=== PATIENT | male | born 1970 | race Caucasian/White ===

== ENCOUNTER → 2016-10-06 | Outpatient (CLI) | payer BC ==
[~2016-10-06] MED LIST: AMIT25TA9 PO; AMLO5TAB2 PO; DOXY100C2 PO; HYDR-34 PO; HYDR-3729 PO; LANS30CA PO; LISI40TA PO; LNS30CCR PO; MORP20SO PO; MTP50T PO; OMEP20TA2 PO; ONDA4TAB8 PO; OXYC-12 PO; OXYC1TAB87 PO; PANT40TA3 PO; SERT25TA PO
[2016-10-06 14:32] LABS: BASOPHILS % (AUTO) 0 % (0-10); EOSINOPHILS % (AUTO) 1 % (0-10); LYMPHOCYTES # (AUTO) 0.8 X 10^3 (1.0-4.0); LYMPHOCYTES % (AUTO) 15 % (12-44); MEAN CORPUSCULAR HEMOGLOBIN 34 PG (25-34); MEAN CORPUSCULAR HGB CONC 35 G/DL (32-36); MEAN CORPUSCULAR VOLUME 100 FL (80-99); MONOCYTES # (AUTO) 0.5 X 10^3 (0.0-1.0); MONOCYTES % (AUTO) 10 % (0-12); NEUTROPHILS # (AUTO) 3.7 X 10^3 (1.8-7.8); NEUTROPHILS % (AUTO) 74 % (42-75); PLATELET COUNT 157 10^3/uL (130-400); RED BLOOD COUNT 4.16 10^6/uL (4.35-5.85); RED CELL DISTRIBUTION WIDTH 12.2 % (10.0-14.5)
--- NOTE | 2016-10-06 14:45 | Diagnostic Imaging Report ---
PROCEDURE: CT abdomen and pelvis without contrast. TECHNIQUE: Multiple contiguous axial images were obtained through the abdomen and pelvis without the use of intravenous contrast. INDICATION: K43.2. Checking on hernia surgery site. FINDINGS: The lung bases appear clear. There is a surgical suture along the proximal stomach. Compared to 05/31/2016, there is also interval resection of a mass from the posterior aspect of the proximal stomach. A small tube along the gastrojejunostomy and another tube through the proximal stomach are seen. There is also a drain that appears to be within the pancreatic duct. The liver demonstrates diffuse hepatic steatosis. The gallbladder has no calcified stones. The adrenal glands and pancreas appear unremarkable. The kidneys demonstrate no hydronephrosis and no stones. The abdominal aorta is normal in caliber. No periaortic significantly enlarged lymph node is seen. There is no bowel obstruction. No free fluid or fluid collection in the abdomen or pelvis is seen. The appendix appears normal. The osseous structures appear grossly unremarkable. There is a small fat-containing supraumbilical ventral hernia with the size of the abdominal wall defect measuring 1 cm in width. Another tiny similar fat-containing hernia with a subcentimeter defect is also suggested in the supraumbilical level. These two small hernias are about 10 cm above the umbilicus. There is a tiny fat-containing umbilical hernia seen as well. IMPRESSION: 1. Tiny fat-containing umbilical and supraumbilical hernias. 2. Hepatic steatosis. 3. Postsurgical changes and drains are seen in the stomach and pancreatic duct as described. Dictated by: Dictated on workstation # [id number]
[2016-10-06 14:54] LABS: ALANINE AMINOTRANSFERASE 191 U/L (0-55); ANION GAP 11 MMOL/L (5-14); ASPARTATE AMINO TRANSFERASE 149 U/L (5-34); BILIRUBIN,TOTAL 0.6 MG/DL (0.1-1.0); BLOOD UREA NITROGEN 10 MG/DL (7-18); BUN/CREATININE RATIO 14; CALCIUM 9.4 MG/DL (8.5-10.1); CARBON DIOXIDE 26 MMOL/L (21-32); CHLORIDE 102 MMOL/L (98-107); CREATININE SERUM 0.73 MG/DL (0.60-1.30); GFR ESTIMATED > 60; GLUCOSE 98 MG/DL (70-105); LIPASE 51 U/L (8-78); POTASSIUM 3.6 MMOL/L (3.6-5.0); SODIUM 139 MMOL/L (135-145); TOTAL PROTEIN 8.1 G/DL (6.4-8.2)
== END ==
LOC: RAD 13:58
PROVIDERS: ATTEND Family Medicine
DX: K43.2 Incisional hernia without obstruction or gangrene (principal); K86.2 Cyst of pancreas; K76.0 Fatty (change of) liver, not elsewhere classified
CPT/HCPCS: 36415; 74176; 80053; 83690; 85025

== ENCOUNTER 2016-11-17 09:17 | Outpatient (CLI) | payer BC ==
[~2016-11-17] VITALS: Ht 177.8 cm; Wt 79.8 kg
[2016-11-17 09:27] VITALS: BP 147/97
[2016-11-17] MEDS ORDERED: LANS30CA PO (09:28)
[2016-11-17 09:54] LABS: BASOPHILS % (AUTO) 0 % (0-10); EOSINOPHILS % (AUTO) 0 % (0-10); LYMPHOCYTES # (AUTO) 0.8 X 10^3 (1.0-4.0); LYMPHOCYTES % (AUTO) 17 % (12-44); MEAN CORPUSCULAR HEMOGLOBIN 34 PG (25-34); MEAN CORPUSCULAR HGB CONC 34 G/DL (32-36); MEAN CORPUSCULAR VOLUME 100 FL (80-99); MEAN PLATELET VOLUME 11.9 FL (7.4-10.4); MONOCYTES # (AUTO) 0.6 X 10^3 (0.0-1.0); MONOCYTES % (AUTO) 11 % (0-12); NEUTROPHILS # (AUTO) 3.5 X 10^3 (1.8-7.8); NEUTROPHILS % (AUTO) 72 % (42-75); PLATELET COUNT 131 10^3/uL (130-400); RED BLOOD COUNT 4.08 10^6/uL (4.35-5.85); RED CELL DISTRIBUTION WIDTH 12.6 % (10.0-14.5); WHITE BLOOD COUNT 4.9 10^3/uL (4.3-11.0)
== END 2016-11-17 09:40 | disposition home or self-care (01) ==
LOC: PREOP 09:17
PROVIDERS: ATTEND Surgery
DX: Z01.812 Encounter for preprocedural laboratory examination (principal); Z11.2 Encounter for screening for other bacterial diseases; K43.9 Ventral hernia without obstruction or gangrene
CPT/HCPCS: 36415; 85025; 87081

== ENCOUNTER 2016-11-20 08:33 | Day surgery (SDC) | payer BC ==
[~2016-11-20] VITALS: Ht 177.8 cm; Wt 77.3 kg
[2016-11-20] MEDS ORDERED: CELECOXIB 100 MG (CeleBREX) CAP PO ONE ×3 (09:00→12:45)
[2016-11-20] MEDS ORDERED: ceFAZolin 1 GM/NS 50 ML IVPB IV ONE ×2 (09:00)
[2016-11-20] MEDS ORDERED: oxyCODONE ER 10 MG (OxyCONTIN CR) TAB PO ONE ×3 (09:00→12:45)
[2016-11-20] MEDS ORDERED: PREGABALIN 75 MG (LYRICA) CAP PO ONE ×3 (09:00→12:45)
[2016-11-20] MEDS ORDERED: ACETAMINOPHEN 500 MG TAB (TYLENOL) PO ONE ×3 (09:00→12:45)
[2016-11-20] MEDS ORDERED: morphine INJ 4 MG/ML 1 ML (VIAL/SYRINGE) IV PRN (09:00)
--- NOTE | 2016-11-20 09:01 | Progress Note-Pre Operative ---
Pre-Operative Progress Note H&P Reviewed The H&P was reviewed, patient examined and no changes noted. Date H&P Reviewed: November 20, 2016 Time H&P Reviewed: 09:00 Pre-Operative Diagnosis: Ventral hernia RON ZALDIVAR MD November 20, 2016 9:01 am
[2016-11-20 09:30] VITALS: BP 150/106
[2016-11-20] MEDS ORDERED: FAMOTIDINE 20MG/2ML IV (PEPCID) IV ONE (09:30)
[2016-11-20] MEDS ORDERED: BUP/EPI 0.25% 1:200,000 (MARCAINE) 30 ML VIAL ONE (10:00)
[2016-11-20] MEDS ORDERED: morphine INJ 10 MG/ML 1ML (SYR OR VIAL) IV PRN ×2 (10:00→12:45)
[2016-11-20] MEDS ORDERED: KETOROLAC 30 MG/ML VIAL IV SCH (10:00)
[2016-11-20] MEDS: LACTATED RINGERS 1,000 ML IV PRN ×2 (10:00→11:51)
[2016-11-20] MEDS ORDERED: LIDOCAINE PF 2% 10 ML (XYLOCAINE) AMP ONE (10:34)
[2016-11-20] MEDS ORDERED: DEXAMETHASONE PF 10 MG/ML (DECADRON) VIAL ONE ×3 (10:34→12:49)
[2016-11-20] MEDS ORDERED: fentaNYL INJECTION 100 MCG/2 ML AMP ONE ×2 (10:34→12:22)
[2016-11-20] MEDS ORDERED: MIDAZOLAM 2 MG/2 ML (VERSED) VIAL ONE (10:34)
[2016-11-20] MEDS ORDERED: LACTATED RINGERS 1,000 ML IV ONE ×2 (10:34→11:45)
[2016-11-20] MEDS ORDERED: ONDANSETRON 4 MG/2 ML (SDV) Z0FRAN ONE ×2 (10:34→11:46)
[2016-11-20] MEDS ORDERED: SEVOFLURANE (ULTANE) 15 ML INHAL SOLN ONE ×5 (10:34→12:49)
[2016-11-20] MEDS ORDERED: proPOfol 200 MG/20 ML (DIPRIVAN) VIAL IV ONE (10:34)
[2016-11-20] MEDS ORDERED: KETAMINE HCL 100 MG/ML 5 ML VIAL ONE (11:28)
[2016-11-20] MEDS ORDERED: ROCURONIUM 50 MG/5 ML (ZEMURON) VIAL IV ONE (11:45)
[2016-11-20] MEDS ORDERED: KETOROLAC 15 MG/ML VIAL IV SCH (12:00)
[2016-11-20] MEDS ORDERED: NEOSTIGMINE (BLOXIVERZ ) 1 MG/1ML 10 ML VIAL ONE (12:34)
[2016-11-20] MEDS ORDERED: GLYCOPYRROLATE 0.2 MG/ML (ROBINUL) 2 ML VIAL ONE (12:34)
--- NOTE | 2016-11-20 12:39 | Progress Note-Post Operative ---
Post-Operative Progess Note Surgeon (s)/Yarn Tester (s) Surgeon RON ZALDIVAR MD Yarn Tester: not applicable Pre-Operative Diagnosis Ventral hernia Post-Operative Diagnosis same Procedure & Operative Findings Date of Procedure 11/20/16 Procedure Performed/Findings robotic assisted repair with mesh Anesthesia Type general Estimated Blood Loss Estimated blood loss (mL): minimal Specimens/Packing Specimens Removed none RON ZALDIVAR MD November 20, 2016 12:39 pm
[2016-11-20] MEDS ORDERED: OXYC-197 PO (12:44)
[2016-11-20] MEDS ORDERED: KETOROLAC 30 MG/ML VIAL IVP PRN (12:45)
--- NOTE | 2016-11-20 12:45 | Discharge Inst-Simple/Standard ---
Discharge Inst-Standard Discharge Medications New, Converted or Re-Newed RX: RX on Chart Patient Instructions/Follow Up Plan of Care/Instructions/FU: ddressings off in a.m. Incentive spirometry. Follow-up in 3 weeks Activity as Tolerated: No Goal: no lifting over 10 pounds Discharge Diet: No Restrictions RON ZALDIVAR MD November 20, 2016 12:45 pm
--- NOTE | 2016-11-20 12:57 | OPERATIVE REPORT ---
DATE OF SERVICE: 11/20/2016 PREOPERATIVE DIAGNOSIS: Ventral hernia. POSTOPERATIVE DIAGNOSIS: Ventral hernia. OPERATION: Robotic-assisted repair of ventral hernia with mesh. SURGEON: Jonahtan ANESTHESIA: General anesthesia. BLOOD LOSS: Minimal. FLUIDS: 1500 mL of crystalloid. TYPE OF WOUND: Type 1 (clean wound). INDICATION FOR PROCEDURE: This gentleman presented with a symptomatic ventral hernia superior to the umbilicus, resulting from a laparotomy to address a pancreatic pseudocyst a few years ago. He was offered minimally invasive repair using robotic assistance and mesh reinforcement. Informed consent was obtained after reviewing the operative detail and complications of hematoma, infection of the mesh and recurrence of the hernia. DESCRIPTION OF PROCEDURE: He was placed supine on the operating table and general anesthesia induced using an endotracheal tube. A gram of Ancef was administered intravenously as prophylaxis against wound infection. Sequential compression devices were placed around his legs to minimize the risk of venous thrombosis. Abdomen was prepared and draped in the usual sterile manner. The right side of his body was tilted up to facilitate triangulation of the robotic system. Pneumoperitoneum was established using a Veress needle introduced over the right subcostal margin, along the midaxillary line. Intraabdominal pressure was maintained at 15 mmHg using carbon dioxide insufflation. A 12 mm trocar was placed and anatomy visualized using the 3 dimensional, high definition laparoscope associated with [employer] system. Omentum was trapped within the hernia, just superior to the umbilicus. In addition, a few omental adhesions were found along the superior aspect of the scar as well. Under direct view, I placed another 12 mm trocar over the right side of the abdomen, along the midaxillary line, followed by an 8 mm trocar over the right lower quadrant. The robotic system was then docked in place. Omentum trapped within the hernia was taken down using robotic scissors, revealing 2 small defects measuring 1.5 cm each, adjacent to each other. In addition, a 1 cm defect was found at the cephalad aspect of the scar. The symptomatic hernia was closed primarily using 0 V-Loc permanent sutures with robotic assistance. A smaller defect along the superior aspect was closed with the same material. The repair was then reinforced with polypropylene mesh measuring 11.4 cm in diameter. It was held up using the self-retaining balloon system to facilitate closure. The edges of the mesh were then secured to the abdominal wall using 2-0 V-Loc sutures with robotic assistance. Hemostasis was satisfactory and the operation concluded. The incisions were then closed using 4-0 Vicryl for skin in a subcuticular fashion. Now, 0.25% Marcaine with epinephrine was infiltrated along the incisions, both preemptively and at the conclusion of the operation. He tolerated the procedure well, was extubated in the operating room and taken to the recovery room in a stable condition. Perry, sponges and instruments were correct at the end of the operation. Job ID: [id number] DocumentID: [id number] Dictated Date: 11/20/2016 12:38:48 Airport Operations Officer Date: 11/20/2016 12:55:57 Dictated By: RON ZALDIVAR MD MTDD
[2016-11-20] MEDS: HYDROmorphone (DILAUDID) 2 MG/ML VIAL IVP PRN ×4 (13:00→13:33)
[2016-11-20] MEDS ORDERED: MEPERIDINE (DEMEROL) INJ 50 MG/ML IVP PRN ×2 (13:15→13:45)
[2016-11-20] MEDS ORDERED: ONDANSETRON 4 MG/2 ML (SDV) Z0FRAN IVP PRN (13:15)
[2016-11-20] MEDS: fentaNYL INJECTION 100 MCG/2 ML AMP IVP PRN ×4 (13:15→20:52)
[2016-11-20] MEDS: KETOROLAC 30 MG/ML VIAL IV SCH ×2 (13:22→17:16)
[2016-11-20] MEDS ORDERED: MEPERIDINE (DEMEROL) INJ 50 MG/ML ONE (13:31)
[2016-11-20 14:05] VITALS: BP 154/102
[2016-11-20 15:40] VITALS: BP 151/103
[2016-11-20 19:10] VITALS: BP 134/106
[2016-11-20 23:55] VITALS: BP 156/100
[2016-11-21] MEDS: KETOROLAC 30 MG/ML VIAL IV SCH ×3 (00:13→12:18)
[2016-11-21 03:30] VITALS: BP 149/88
[2016-11-21] MEDS: fentaNYL INJECTION 100 MCG/2 ML AMP IVP PRN (04:05)
[2016-11-21 08:35] VITALS: BP 149/85
--- NOTE | 2016-11-21 10:36 | Anesthesia-General Post-Op ---
General Patient Condition Mental Status/LOC: Same as Preop Cardiovascular: Satisfactory Nausea/Vomiting: Absent Respiratory: Satisfactory Pain: Controlled Complications: Absent Post Op Complications Complications None Follow Up Care/Instructions Patient Instructions None needed. Anesthesia/Patient Condition Patient Condition Patient is doing well, no complaints, stable vital signs, no apparent adverse anesthesia problems. No complications reported per nursing. ROBBIE SCHULTZ CRNA November 21, 2016 10:36
[2016-11-21 12:45] VITALS: BP 157/85
--- NOTE | 2016-11-21 15:35 | Progress Note-Standard ---
Standard Progress Note Progress Notes/Assess & Plan Progress/Assessment & Plan 11/21/16: Doing well. Pain control adequate;tolerating diet.Home Final Diagnosis Ventral hernia RON ZALDIVAR MD November 21, 2016 3:35 pm
[2016-11-21 16:00] VITALS: BP 152/85
[2016-11-21 18:10] VITALS: BP 157/85
== END 2016-11-21 18:16 | disposition home or self-care (01) ==
LOC: SDC 08:33 → 4TH 14:40 → ENPENDDIS 11-21 11:00 → SDC 11-21 18:16
PROVIDERS: ATTEND Surgery
DX: K43.9 Ventral hernia without obstruction or gangrene (principal); F17.210 Nicotine dependence, cigarettes, uncomplicated; K21.9 Gastro-esophageal reflux disease without esophagitis
CPT/HCPCS: 94760

== ENCOUNTER 2017-08-14 11:08 | Emergency (ER) | payer BC ==
[~2017-08-14] VITALS: Ht 177.8 cm; Wt 72.6 kg
[~2017-08-14 11:08] MED LIST changes: +OXYC-197 PO
[2017-08-14] MEDS ORDERED: NS IV 1000 ML 1,000 ML IV SCH (12:00)
[2017-08-14] MEDS ORDERED: ONDANSETRON 4 MG/2 ML (SDV) Z0FRAN IVP ONE (12:00)
[2017-08-14] MEDS ORDERED: fentaNYL INJECTION 100 MCG/2 ML AMP IVP ONE (12:00)
[2017-08-14] MEDS ORDERED: NS 100 ML (IVPB) BAG IV ONE (12:00)
[2017-08-14] MEDS ORDERED: IOHEXOL 350 MG/ML 100 ML (OMNIPAQUE 350) VIAL IV ONE (12:00)
[2017-08-14] MEDS ORDERED: KETOROLAC 30 MG/ML VIAL IVP STA (12:07)
[2017-08-14 12:11] LABS: BASOPHILS % (AUTO) 0 % (0-10); EOSINOPHILS % (AUTO) 1 % (0-10); HEMATOCRIT 43 % (40-54); HEMOGLOBIN 15.1 G/DL (13.3-17.7); LYMPHOCYTES # (AUTO) 0.8 X 10^3 (1.0-4.0); LYMPHOCYTES % (AUTO) 13 % (12-44); MEAN CORPUSCULAR HEMOGLOBIN 36 PG (25-34); MEAN CORPUSCULAR HGB CONC 35 G/DL (32-36); MEAN CORPUSCULAR VOLUME 100 FL (80-99); MEAN PLATELET VOLUME 11.3 FL (7.4-10.4); MONOCYTES # (AUTO) 0.5 X 10^3 (0.0-1.0); MONOCYTES % (AUTO) 9 % (0-12); NEUTROPHILS # (AUTO) 4.9 X 10^3 (1.8-7.8); NEUTROPHILS % (AUTO) 78 % (42-75); PLATELET COUNT 158 10^3/uL (130-400); RED BLOOD COUNT 4.25 10^6/uL (4.35-5.85); RED CELL DISTRIBUTION WIDTH 12.8 % (10.0-14.5); WHITE BLOOD COUNT 6.3 10^3/uL (4.3-11.0)
--- NOTE | 2017-08-14 12:30 | ED Abdominal Pain ---
General Chief Complaint: Abdominal/GI Problems Stated Complaint: ABD PAIN Nursing Triage Note: c/o mid-upper abd pain. Onset 1.5 days ago. Vomiting and diarreha here. Sepsis Screen: No Definite Risk Source of Information: Patient Exam Limitations: No Limitations History of Present Illness Date Seen by Provider: Aug 14, 2017 Time Seen by Provider: 12:10 Initial Comments Here with report of upper abdominal pain over the last day and a half. States he had vomiting and diarrhea yesterday. Had 3 episodes of vomiting with dry heaves. Today he has the upper abdominal pain that is worse with deep breathing. Also has pain with moving and sitting up. Is able to eat and drink. States the diarrhea and vomiting has stopped today. Does have history of pancreatitis and had hernia repair last year. States he has stopped drinking alcohol and is not using drugs. States his pain pills is not working. Timing/Duration: 1-2 Days Severity/Quality: Moderate, Aching Location: RUQ, LUQ, Epigastric Radiation: No Radiation Activities at Onset: None Modifying Factors: Worsens With Breathing, Worsens With Eating, Worsens With Movement Associated Symptoms: Denies Symptoms Allergies and Home Medications Allergies Coded Allergies: No Known Drug Allergies (Unverified , 07/19/15) Home Medications Lansoprazole 30 Mg Capsule.dr, 30 MG PO DAILY, (Reported) Oxycodone HCl/Acetaminophen 1 Each Tablet, 1 EACH PO Q4H PRN for ABDOMINAL PAIN , #30 Prescribed by: RON ZALDIVAR on 11/20/16 1244 Review of Systems Constitutional: see HPI EENTM: No Symptoms Reported Respiratory: No Symptoms Reported Cardiovascular: No Symptoms Reported Gastrointestinal: See HPI, Diarrhea, Nausea, Vomiting Genitourinary: No Symptoms Reported Musculoskeletal: see HPI, No joint pain, muscle pain Skin: no symptoms reported All Other Systems Reviewed Negative Unless Noted: Yes Past Cgboeey-Myyyal-Uvcdpx Hx Patient Social History Alcohol Use: Denies Use Number of Drinks Today: AA Alcohol Beverage of Choice: Beer Recreational Drug Use: No Drug of Choice: MARIJUANA Smoking Status: Current Everyday Smoker Type Used: Cigarettes Former Smoker, Quit: Feb 29, 2016 Recent Foreign Travel: No Contact w/Someone Who Travel: No Recent Infectious Disease Expo: No Recent Hopitalizations: No Immunizations Up To Date Tetanus Booster (TDap): Unknown Date of Pneumonia Vaccine: Jun 06, 2013 Date of Influenza Vaccine: Mar 29, 2015 Seasonal Allergies Seasonal Allergies: No Surgeries History of Surgeries: Yes (pancreatic cyst laposcopic once and open, shent put in pancreas) Surgeries: Abdominal Respiratory History of Respiratory Disorde: No Respiratory Disorders: Pneumonia Currently Using CPAP: No Currently Using BIPAP: No Cardiovascular History of Cardiac Disorders: Yes Cardiac Disorders: Hypertension Neurological History of Neurological Disord: No Reproductive System Hx Reproductive Disorders: No Sexually Transmitted Disease: No HIV/AIDS: No Genitourinary History of Genitourinary Disor: No Gastrointestinal History of Gastrointestinal Di: Yes Gastrointestinal Disorders: Abdominal Hernia, Gastroesophageal Reflux, Pancreatitis Musculoskeletal History of Musculoskeletal Dis: No Endocrine History of Endocrine Disorders: No HEENT History of HEENT Disorders: No Loss of Vision: Denies Hearing Impairment: Denies Cancer History of Cancer: No Psychosocial History of Psychiatric Problem: Yes Behavioral Health Disorders: Anxiety, Bipolar Integumentary History of Skin or Integumenta: No Skin/Integumentary Disorders: Recent Skin Changes Blood Transfusions History of Blood Disorders: No Adverse Reaction to a Blood Tr: No Reviewed Nursing Assessment Reviewed/Agree w Nursing PMH: Yes Family Medical History Significant Family History: No Pertinent Family Hx, Diabetes, Hypertension Family Medial History: Alcoholism 03 FATHER Cancer 03 FATHER (CANCER OF JAW) Family history: Cardiovascular disease 03 FATHER Family history: Diabetes mellitus 03 MOTHER 09 SISTER Physical Exam Vital Signs VS - Last 72 Hours, by Label 08/14/17 08/14/17 08/14/17 08/14/17 11:42 12:16 12:17 14:14 Temp 98.2 98.2 98.2 98.2 Pulse 84 Resp 18 B/P (MAP) 145/112 (123) Pulse Ox 98 O2 Delivery Room Air Capillary Refill : Less Than 3 Seconds General Appearance: WD/WN, no apparent distress Neck: full range of motion, supple Respiratory: lungs clear, normal breath sounds Cardiovascular: regular rate, rhythm, no murmur Gastrointestinal: normal bowel sounds, soft, tenderness (upper abdomen overall mild) Extremities: non-tender, normal inspection Back: normal inspection, no CVA tenderness, no vertebral tenderness Neurologic/Psychiatric: alert, oriented x 3 Skin: normal color, warm/dry Progress/Results/Core Measures Results/Orders Lab Results Laboratory Tests Test 08/14/17 12:03 08/14/17 15:10 Range/Units White Blood Count 6.3 4.3-11.0 10^3/uL Red Blood Count 4.25 L 4.35-5.85 10^6/uL Hemoglobin 15.1 13.3-17.7 G/DL Hematocrit 43 40-54 % Mean Corpuscular Volume 100 H 80-99 FL Mean Corpuscular Hemoglobin 36 H 25-34 PG Mean Corpuscular Hemoglobin Concent 35 32-36 G/DL Red Cell Distribution Width 12.8 10.0-14.5 % Platelet Count 158 130-400 10^3/uL Mean Platelet Volume 11.3 H 7.4-10.4 FL Neutrophils (%) (Auto) 78 H 42-75 % Lymphocytes (%) (Auto) 13 12-44 % Monocytes (%) (Auto) 9 0-12 % Eosinophils (%) (Auto) 1 0-10 % Basophils (%) (Auto) 0 0-10 % Neutrophils # (Auto) 4.9 1.8-7.8 X 10^3 Lymphocytes # (Auto) 0.8 L 1.0-4.0 X 10^3 Monocytes # (Auto) 0.5 0.0-1.0 X 10^3 Eosinophils # (Auto) 0.0 0.0-0.3 10^3/uL Basophils # (Auto) 0.0 0.0-0.1 10^3/uL Sodium Level 136 135-145 MMOL/L Potassium Level 3.8 3.6-5.0 MMOL/L Chloride Level 102 98-107 MMOL/L Carbon Dioxide Level 23 21-32 MMOL/L Anion Gap 11 5-14 MMOL/L Blood Urea Nitrogen 8 7-18 MG/DL Creatinine 0.77 0.60-1.30 MG/DL Estimat Glomerular Filtration Rate > 60 BUN/Creatinine Ratio 10 Glucose Level 140 H 70-105 MG/DL Calcium Level 9.7 8.5-10.1 MG/DL Total Bilirubin 1.4 H 0.1-1.0 MG/DL Aspartate Amino Transf (AST/SGOT) 265 H 5-34 U/L Alanine Aminotransferase (ALT/SGPT) 260 H 0-55 U/L Alkaline Phosphatase 101 40-136 U/L Lactate Dehydrogenase 222 H 125-220 U/L Total Protein 8.9 H 6.4-8.2 GM/DL Albumin 3.9 3.2-4.5 GM/DL Lipase 38 8-78 U/L Urine Color YELLOW Urine Clarity CLEAR Urine pH 8 5-9 Urine Specific [place] 1.010 L 1.016-1.022 Urine Protein NEGATIVE NEGATIVE Urine Glucose (UA) NEGATIVE NEGATIVE Urine Ketones NEGATIVE NEGATIVE Urine Nitrite NEGATIVE NEGATIVE Urine Bilirubin NEGATIVE NEGATIVE Urine Urobilinogen 1 NORMAL MG/DL Urine Leukocyte Esterase NEGATIVE NEGATIVE Urine RBC (Auto) NEGATIVE NEGATIVE Urine RBC NONE /HPF Urine WBC NONE /HPF Urine Squamous Epithelial Cells RARE /HPF Urine Crystals NONE /LPF Urine Bacteria NEGATIVE /HPF Urine Casts NONE /LPF Urine Mucus NEGATIVE /LPF Urine Culture Indicated NO My Orders Orders - EBONY PADILLA MD Ketorolac Injection (Toradol Injection) (08/14/17 12:07) Hydromorphone Injection (Dilaudid Inject (08/14/17 14:00) Ns Iv 1000 Ml (Sodium Chloride 0.9%) (08/14/17 14:00) Medications Given in ED Current Medications Medications Dose Ordered Sig/[place] Route Start Time Stop Time Status Last Admin Dose Admin Fentanyl Citrate 50 mcg ONCE ONCE IVP 08/14/17 12:00 08/14/17 12:01 DC 08/14/17 12:16 50 MCG Iohexol 100 ml ONCE ONCE IV 08/14/17 12:00 08/14/17 12:16 DC 08/14/17 13:07 100 ML Ondansetron HCl 8 mg ONCE ONCE IVP 08/14/17 12:00 08/14/17 12:01 DC 08/14/17 12:16 8 MG Sodium Chloride 1,000 ml @ 0 mls/hr Q0M ONCE IV 08/14/17 14:00 08/14/17 14:01 DC 08/14/17 14:14 1,000 MLS/HR Vital Signs/I&O Vital Sign - Last 12Hours 08/14/17 08/14/17 08/14/17 08/14/17 11:42 12:16 12:17 14:14 Temp 98.2 98.2 98.2 98.2 Pulse 84 Resp 18 B/P (MAP) 145/112 (123) Pulse Ox 98 O2 Delivery Room Air Blood Pressure Mean: 123 Progress Note : Progress Note Seen and evaluated. IV, labs, UA, normal saline 1 L bolus, Zofran 4 mg IV, fentanyl 50 g IV and Toradol 30 mg IV ordered. Due to patient's history of pancreatitis and surgery with this type of pain, we will get CT abdomen pelvis for further evaluation. Monitor patient. Patient did get second liter of fluid and Dilaudid 1 mg IV for pain. UA pending as patient has been unable to give urine. 1530: UA complete. No significant findings on any the workup except for transaminitis. This should be further evaluated by his primary care physician. We will send a copy of the chart to Dr. Collins. Discharged home with return precautions. Patient verbalize understanding instructions and agreement with plan. Diagnostic Imaging Diagonstic Imaging: CT Plain Films/CT/US/NM/MRI: abdomen, pelvis Comments NAME: SHELBY CURRY [facility] REC#: [id number] PT STATUS: REG ER : 1970 PHYSICIAN: SANJYA HENDERSON TIME CLOCK INSPECTOR ADMIT DATE: 08/14/17/ER Signed Date of Exam: 08/14/17 CT ABDOMEN/PELVIS W PROCEDURE: CT abdomen and pelvis with contrast. TECHNIQUE: Multiple contiguous axial images were obtained through the abdomen and pelvis after administration of intravenous contrast. INDICATION: Epigastric pain with nausea and diarrhea. Comparison is made with prior CT from 10/06/2016. FINDINGS: The lung bases are clear. No discrete liver mass is identified. The gallbladder is unremarkable. Postsurgical changes to the stomach are again noted. Tubing again overlies the posterior aspect of the stomach. Multiple varices in the upper abdomen appear similar to prior study. There appears to be a stent or drain in the region of the pancreatic head and proximal body. No pancreatic or biliary ductal dilatation is seen. Spleen is enlarged measuring 15.6 cm AP plane compared with 14.7 cm on prior. No adrenal mass is seen. Kidneys appear to be stable. The aorta is nonaneurysmal. The visualized small and large bowel loops are normal caliber. The appendix is unremarkable. There is no ascites. The bladder and prostate are unremarkable. No definite abdominal or pelvic lymphadenopathy is seen. IMPRESSION: Overall stable CT of the abdomen and pelvis when compared with prior exam from 10/06/2016. No acute feature is detected. Dictated by: Dictated on workstation # [id number] Dict: 08/14/17 1317 Trans: 08/14/17 1351 Interpreted by: MARIAMA CLAUDIO MD Electronically signed by: MARIAMA CLAUDIO MD 08/14/17 1505 Departure Impression Impression: Primary Impression: Upper abdominal pain Additional Impressions: Muscle strain Transaminitis Disposition: HOME, SELF-CARE Condition: Improved Departure-Patient Inst. Decision time for Depature: 15:38 Referrals: MARY COLLINS MD (PCP/Family) Primary Care Physician Patient Instructions: Abdominal Muscle Strain (DC), Acute Abdomen (Belly Pain) , Adult (DC) Add. Discharge Instructions: All discharge instructions reviewed with patient and/or family. Voiced understanding. Follow-up with Dr. Verde next week for recheck and further evaluation. Drink plenty of fluids and take clear liquid diet for the next 24 hours and then advance as tolerated. You should avoid Tylenol or acetaminophen until cleared by your doctor. Return for worse pain, fever, vomiting, weakness , breathing problems or other concerns as needed. Work/School Note: Work Release Form Date Seen in the Emergency Department: Aug 14, 2017 Return to Work: Aug 17, 2017 Restrictions: No Restrictions Copy Copies To 1: MARY COLLINS MD, TIMOTHY D MD Aug 14, 2017 12:30
[2017-08-14 12:33] LABS: ALANINE AMINOTRANSFERASE 260 U/L (0-55); ALBUMIN 3.9 GM/DL (3.2-4.5); ALKALINE PHOSPHATASE 101 U/L (40-136); BILIRUBIN,TOTAL 1.4 MG/DL (0.1-1.0); BUN/CREATININE RATIO 10; CALCIUM 9.7 MG/DL (8.5-10.1); CARBON DIOXIDE 23 MMOL/L (21-32); CHLORIDE 102 MMOL/L (98-107); CREATININE SERUM 0.77 MG/DL (0.60-1.30); GFR ESTIMATED > 60; GLUCOSE 140 MG/DL (70-105); LIPASE 38 U/L (8-78); POTASSIUM 3.8 MMOL/L (3.6-5.0); SODIUM 136 MMOL/L (135-145); TOTAL PROTEIN 8.9 GM/DL (6.4-8.2)
--- NOTE | 2017-08-14 13:26 | Diagnostic Imaging Report ---
PROCEDURE: CT abdomen and pelvis with contrast. TECHNIQUE: Multiple contiguous axial images were obtained through the abdomen and pelvis after administration of intravenous contrast. INDICATION: Epigastric pain with nausea and diarrhea. Comparison is made with prior CT from 10/06/2016. FINDINGS: The lung bases are clear. No discrete liver mass is identified. The gallbladder is unremarkable. Postsurgical changes to the stomach are again noted. Tubing again overlies the posterior aspect of the stomach. Multiple varices in the upper abdomen appear similar to prior study. There appears to be a stent or drain in the region of the pancreatic head and proximal body. No pancreatic or biliary ductal dilatation is seen. Spleen is enlarged measuring 15.6 cm AP plane compared with 14.7 cm on prior. No adrenal mass is seen. Kidneys appear to be stable. The aorta is nonaneurysmal. The visualized small and large bowel loops are normal caliber. The appendix is unremarkable. There is no ascites. The bladder and prostate are unremarkable. No definite abdominal or pelvic lymphadenopathy is seen. IMPRESSION: Overall stable CT of the abdomen and pelvis when compared with prior exam from 10/06/2016. No acute feature is detected. Dictated by: Dictated on workstation # [id number]
[2017-08-14] MEDS ORDERED: NS IV 1000 ML 1,000 ML IV ONE (14:00)
[2017-08-14] MEDS ORDERED: HYDROmorphone (DILAUDID) 2 MG/ML VIAL IM STA (14:00)
[2017-08-14 15:34] LABS: BILIRUBIN,URINE NEGATIVE (NEGATIVE); CLARITY,URINE CLEAR; COLOR,URINE YELLOW; GLUCOSE, URINE (UA) NEGATIVE (NEGATIVE); KETONES,URINE NEGATIVE (NEGATIVE); LEUKOCYTE ESTERASE ,URINE NEGATIVE (NEGATIVE); NITRITE,URINE NEGATIVE (NEGATIVE); PH,URINE 8 (5-9); PROTEIN,URINE NEGATIVE (NEGATIVE); UROBILINOGEN,URINE 1 MG/DL (NORMAL)
[2017-08-14 15:35] LABS: BACTERIA,URINE NEGATIVE /HPF; SQUAMOUS EPITHELIAL CELL,UR RARE /HPF
[2017-08-14 15:55] VITALS: BP 142/90
--- OUTSIDE RECORDS SUMMARY | 2017-08-14 16:44 | XMS REPORT | Continuity of Care Document ---
Author Author [facility] Organization [facility] Address Unknown Phone Unavailable Allergies Active Description Code Type Severity Reaction Onset Reported/Identified Relationship to Patient Clinical Status Yes No Known Drug Allergies [id number] Drug Allergy Unknown N/A 07/19/2015 Medications There is no data. Problems Date Dx Coded Attending Type Code Diagnosis Diagnosed By 06/08/2013 MAYITO COHN MD Ot 275.2 DIS MAGNESIUM METABOLISM 06/08/2013 MAYITO COHN MD Ot 276.51 DEHYDRATION 06/08/2013 MAYITO COHN MD Ot 276.8 HYPOPOTASSEMIA 06/08/2013 MAYITO COHN MD Ot 287.5 THROMBOCYTOPENIA NOS 06/08/2013 MAYITO COHN MD Ot 305.1 TOBACCO USE DISORDER 06/08/2013 MAYITO COHN MD Ot 401.9 HYPERTENSION NOS 06/08/2013 MAYITO COHN MD Ot 486 PNEUMONIA, ORGANISM NOS 06/08/2013 MAYITO COHN MD Ot 530.81 ESOPHAGEAL REFLUX 06/08/2013 MAYITO COHN MD Ot 577.0 ACUTE PANCREATITIS 06/08/2013 MAYITO COHN MD Ot 584.9 ACUTE RENAL FAILURE, UNSPECIFIED 06/08/2013 MAYITO COHN MD Ot 785.0 TACHYCARDIA NOS 06/08/2013 MAYITO COHN MD Ot 790.29 OTHER ABNORMAL GLUCOSE 06/08/2013 MAYITO COHN MD Ot E947.8 ADV EFF MEDICINAL NEC 06/08/2013 MAYITO COHN MD Ot V03.82 PROPHYLACTIC VACC AGAINST STREPTOCOCCUS 06/08/2013 MAYITO COHN MD Ot V04.81 ND FOR PROPHYLACTIC VACCIN AND INOCULATI 11/30/2013 SANJAY HENDERSON APRN Ot 577.2 PANCREAT CYST/PSEUDOCYST 11/30/2013 SANJAY HENDERSON APRN Ot 787.03 VOMITING ALONE 12/07/2013 DEMETRIA VILLASEÑOR, KATYA Pool Ot 401.9 HYPERTENSION NOS 12/07/2013 DEMETRIA VILLASEÑOR, KATYA Pool Ot 530.81 ESOPHAGEAL REFLUX 12/07/2013 DEMETRIA VILLASEÑOR, KATYA Pool Ot 577.0 ACUTE PANCREATITIS 03/16/2014 DEMETRIA VILLASEÑOR, KATYA Pool Ot 577.0 ACUTE PANCREATITIS 03/16/2014 DEMETRIA VILLASEÑOR, KATYA Pool Ot 792.1 ABN FIND-STOOL CONTENTS 11/24/2014 DEMETRIA VILLASEÑOR, KATYA Pool Ot 577.2 11/25/2014 DEMETRIA VILLASEÑOR, KATYA Pool Ot 577.2 11/26/2014 DEMETRIA VILLASEÑOR, KATYA Pool Ot 577.2 11/27/2014 DEMETRIA VILLASEÑOR, KATYA Pool Ot 577.2 11/28/2014 DEMETRIA VILLASEÑOR, KATYA Pool Ot 577.2 11/28/2014 DEMETRIA VILLASEÑOR, KATYA S Ot 401.9 HYPERTENSION NOS 11/28/2014 DEMETRIA VILLASEÑOR, KATYA Pool Ot 530.81 ESOPHAGEAL REFLUX 11/28/2014 DEMETRIA VILLASEÑOR, KATYA Pool Ot 577.2 PANCREAT CYST/PSEUDOCYST 11/28/2014 DEMETRIA VILLASEÑOR, KATYA S Ot V15.82 HISTORY OF TOBACCO USE 12/12/2014 DEMETRIA VILLASEÑOR, KATYA Pool Ot 577.2 12/13/2014 DEMETRIA VILLASEÑOR, KATYA Pool Ot 577.2 12/13/2014 DEMETRIA VILLASEÑOR, KATYA Pool Ot V72.81 12/13/2014 DEMETRIA VILLASEÑOR, KATYA Pool Ot V72.83 12/13/2014 DEMETRIA VILLASEÑOR, KATYA Pool Ot V74.8 02/22/2015 DEMETRIA VILLASEÑOR, KATYA Pool Ot 530.11 REFLUX ESOPHAGITIS 03/08/2015 DEMETRIA VILLASEÑOR, KATYA Pool Ot 577.2 07/24/2015 LALIT VILLASEÑOR, MAYITO Gross Ot F10.20 ALCOHOL DEPENDENCE, UNCOMPLICATED 07/24/2015 LALIT VILLASEÑOR, MAYITO Gross Ot F12.90 CANNABIS USE, UNSPECIFIED, UNCOMPLICATED 07/24/2015 LALIT VILLASEÑOR, MAYITO Gross Ot F15.90 OTHER STIMULANT USE, UNSPECIFIED, UNCOMP 07/24/2015 LALIT VILLASEÑOR, MAYITO Gross Ot F17.210 NICOTINE DEPENDENCE, CIGARETTES, UNCOMPL 07/24/2015 LALIT VILLASEÑOR, MAYITO Gross Ot F19.90 OTHER PSYCHOACTIVE SUBSTANCE USE, UNSPEC 07/24/2015 MAYITO COHN MD Ot F32.9 MAJOR DEPRESSIVE DISORDER, SINGLE EPISOD 07/24/2015 MAYITO COHN MD Ot F41.9 ANXIETY DISORDER, UNSPECIFIED 07/24/2015 MAYITO COHN MD Ot I10 ESSENTIAL (PRIMARY) HYPERTENSION 07/24/2015 MAYITO COHN MD Ot K21.9 GASTRO-ESOPHAGEAL REFLUX DISEASE WITHOUT 07/24/2015 MAYITO COHN MD Ot K85.2 ALCOHOL INDUCED ACUTE PANCREATITIS 07/24/2015 MAYITO COHN MD Ot K86.0 ALCOHOL-INDUCED CHRONIC PANCREATITIS 07/24/2015 MAYITO COHN MD Ot K86.3 PSEUDOCYST OF PANCREAS 10/28/2015 SANJAY HENDERSON WATER TECHNICIAN Ot 577.2 PANCREAT CYST/PSEUDOCYST 10/28/2015 SANJAY HENDERSON WATER TECHNICIAN Ot 787.03 VOMITING ALONE 11/28/2015 SANJAY HENDERSON WATER TECHNICIAN Ot 577.2 PANCREAT CYST/PSEUDOCYST 11/28/2015 SANJAY HENDERSON WATER TECHNICIAN Ot 787.03 VOMITING ALONE 01/28/2016 SANJAY HENDERSON WATER TECHNICIAN Ot 577.2 PANCREAT CYST/PSEUDOCYST 01/28/2016 SANJAY HENDERSON WATER TECHNICIAN Ot 787.03 VOMITING ALONE 02/05/2016 MELIA KONG INVESTIGATOR INTERNAL AFFAIRS Ot 577.2 PANCREAT CYST/PSEUDOCYST 02/05/2016 MELIA KONG L INVESTIGATOR INTERNAL AFFAIRS Ot 787.01 NAUSEA WITH VOMITING 02/05/2016 MELIA KONG L INVESTIGATOR INTERNAL AFFAIRS Ot 789.00 ABDOMINAL PAIN, UNSPECIFIED SITE 02/05/2016 DEMETRIA VILLASEÑOR, KATYA Pool Ot 577.0 ACUTE PANCREATITIS 02/05/2016 DEMETRIA VILLASEÑOR, KATYA Pool Ot 454.9 ASYMPTOMATIC VARICOSE VEINS 02/05/2016 DEMETRIA VILLASEÑOR, KATYA Pool Ot 511.9 PLEURAL EFFUSION NOS 02/05/2016 DEMETRIA VILLASEÑOR, KATYA Pool Ot 518.0 PULMONARY COLLAPSE 02/05/2016 DEMETRIA VILLASEÑOR, KATYA Pool Ot 577.0 ACUTE PANCREATITIS 02/05/2016 DEMETRIA VILLASEÑOR, KATYA Pool Ot 577.2 PANCREAT CYST/PSEUDOCYST 02/05/2016 DEMETRIA VILLASEÑOR, KATYA Pool Ot 789.2 SPLENOMEGALY 02/05/2016 DEMETRIA VILLASEÑOR, KATYA Pool Ot 577.0 ACUTE PANCREATITIS 02/05/2016 Ot 577.0 ACUTE PANCREATITIS 02/05/2016 Ot 792.1 ABN FIND- STOOL CONTENTS 02/05/2016 DEMETRIA VILLASEÑOR, KATYA S Ot 577.2 PANCREAT CYST/PSEUDOCYST 02/13/2016 ADDISON HERNANDEZ Ot R11.2 NAUSEA WITH VOMITING, UNSPECIFIED 02/13/2016 ADDISON HERNANDEZ Ot R74.8 ABNORMAL LEVELS OF OTHER SERUM ENZYMES 02/13/2016 ADDISON HERNANDEZ Ot Z85.07 PERSONAL HISTORY OF MALIGNANT NEOPLASM O 02/28/2016 ADDISON HERNANDEZ Ot R11.2 NAUSEA WITH VOMITING, UNSPECIFIED 02/28/2016 ADDISON HERNANDEZ Ot R74.8 ABNORMAL LEVELS OF OTHER SERUM ENZYMES 02/28/2016 ADDISON HERNANDEZ Ot Z85.07 PERSONAL HISTORY OF MALIGNANT NEOPLASM O 02/29/2016 DEMETRIA VILLASEÑOR, KATYA S Ot 577.2 PANCREAT CYST/PSEUDOCYST 02/29/2016 DEMETRIA VILLASEÑOR, KATYA S Ot V72.81 [id number] CARDIOVASCULAR 02/29/2016 DEMETRIA VILLASEÑOR, KATYA S Ot V72.83 EXAM PRE-OPERATIVE NEC 02/29/2016 DEMETRIA VILLASEÑOR, KATYA S Ot V74.8 SCREEN-BACTERIAL DIS NEC 02/29/2016 DEMETRIA VILLASEÑOR, KATYA Pool Ot 577.2 PANCREAT CYST/PSEUDOCYST 02/29/2016 DEMETRIA VILLASEÑOR, KATYA S Ot V72.84 EXAM PRE-OPERATIVE NOS 02/29/2016 HEYDI WATSON, ADDISON Alberts Ot R11.2 NAUSEA WITH VOMITING, UNSPECIFIED 02/29/2016 ADDISON HERNANDEZ Ot R74.8 ABNORMAL LEVELS OF OTHER SERUM ENZYMES 02/29/2016 ADDISON HERNANDEZ Ot Z85.07 PERSONAL HISTORY OF MALIGNANT NEOPLASM O 02/29/2016 ZEN VILLASEÑOR, RON Alberts Ot R10.11 RIGHT UPPER QUADRANT PAIN 02/29/2016 ZEN VILLASEÑOR, RON Alberts Ot R10.12 LEFT UPPER QUADRANT PAIN 03/18/2016 ZEN VILLASEÑOR, RON Alberts Ot R10.11 RIGHT UPPER QUADRANT PAIN 03/18/2016 RON ZALDIVAR MD Ot R10.12 LEFT UPPER QUADRANT PAIN 06/01/2016 MARY COLLINS MD Ot F10.21 ALCOHOL DEPENDENCE, IN REMISSION 06/01/2016 MARY COLLINS MD Ot I10 ESSENTIAL (PRIMARY) HYPERTENSION 06/01/2016 MARY COLLINS MD Ot K86.1 OTHER CHRONIC PANCREATITIS 06/01/2016 MARY COLLINS MD Ot K86.3 PSEUDOCYST OF PANCREAS 06/01/2016 MARY COLLINS MD Ot R13.13 DYSPHAGIA, PHARYNGEAL PHASE 06/01/2016 MARY COLLINS MD Ot R74.8 ABNORMAL LEVELS OF OTHER SERUM ENZYMES 10/06/2016 MARY COLLINS MD, Ot K43.2 INCISIONAL HERNIA WITHOUT OBSTRUCTION OR 10/06/2016 MARY COLLINS MD Ot K76.0 FATTY (CHANGE OF) LIVER, NOT ELSEWHERE C 10/06/2016 MARY COLLINS MD Ot K86.2 CYST OF PANCREAS 10/24/2016 MARY COLLINS MD, Ot K43.2 INCISIONAL HERNIA WITHOUT OBSTRUCTION OR 10/24/2016 MARY COLLINS MD Ot K76.0 FATTY (CHANGE OF) LIVER, NOT ELSEWHERE C 10/24/2016 MARY COLLINS MD, Ot K86.2 CYST OF PANCREAS 11/17/2016 RON ZALDIVAR MD Ot K43.9 VENTRAL HERNIA WITHOUT OBSTRUCTION OR GA 11/17/2016 RON ZALDIVAR MD Ot Z01.812 ENCOUNTER FOR PREPROCEDURAL LABORATORY E 11/17/2016 RON ZALDIVAR MD Ot Z11.2 ENCOUNTER FOR SCREENING FOR OTHER BACTER 11/18/2016 RON ZALDIVAR MD Ot K43.9 VENTRAL HERNIA WITHOUT OBSTRUCTION OR GA 11/18/2016 RON ZALDIVAR MD Ot Z01.812 ENCOUNTER FOR PREPROCEDURAL LABORATORY E 11/18/2016 RON ZALDIVAR MD Ot Z11.2 ENCOUNTER FOR SCREENING FOR OTHER BACTER 11/21/2016 RON ZALDIVAR MD Ot F17.210 NICOTINE DEPENDENCE, CIGARETTES, UNCOMPL 11/21/2016 RON ZALDIVAR MD Ot K21.9 GASTRO-ESOPHAGEAL REFLUX DISEASE WITHOUT 11/21/2016 RON ZALDIVAR MD Ot K43.9 VENTRAL HERNIA WITHOUT OBSTRUCTION OR GA 11/26/2016 RON ZALDIVAR MD Ot F17.210 NICOTINE DEPENDENCE, CIGARETTES, UNCOMPL 11/26/2016 ZEN VILLASEÑOR, RON Alberts Ot K21.9 GASTRO-ESOPHAGEAL REFLUX DISEASE WITHOUT 11/26/2016 ZEN VILLASEÑOR, RON Alberts Ot K43.9 VENTRAL HERNIA WITHOUT OBSTRUCTION OR GA 11/28/2016 ZEN VILLASEÑOR, RON Alberts Ot F17.210 NICOTINE DEPENDENCE, CIGARETTES, UNCOMPL 11/28/2016 ZEN VILLASEÑOR, RON Alberts Ot K21.9 GASTRO-ESOPHAGEAL REFLUX DISEASE WITHOUT 11/28/2016 ZEN VILLASEÑOR, RON Alberts Ot K43.9 VENTRAL HERNIA WITHOUT OBSTRUCTION OR GA Procedures Code Description Performed By Performed On 43.0 12/02/2013 52.4 11/22/2014 Results Test Result Range Complete blood count (CBC) with automated white blood cell (WBC) differential - 05/30/16 17:30 Blood leukocytes automated count (number/volume) 5.2 10*3/uL 4.3-11.0 Blood erythrocytes automated count (number/volume) 4.03 10*6/uL 4.35-5.85 Venous blood hemoglobin measurement (mass/volume) 14.3 g/dL 13.3-17.7 Blood hematocrit (volume fraction) 40 % 40-54 Automated erythrocyte mean corpuscular volume 99 [foz_us] 80-99 Automated erythrocyte mean corpuscular hemoglobin (mass per erythrocyte) 36 pg 25-34 Automated erythrocyte mean corpuscular hemoglobin concentration measurement ( mass/volume) 36 g/dL 32-36 Automated erythrocyte distribution width ratio 11.7 % 10.0-14.5 Automated blood platelet count (count/volume) 139 10*3/uL 130-400 Automated blood platelet mean volume measurement 11.5 [foz_us] 7.4-10.4 Automated blood neutrophils/100 leukocytes 68 % 42-75 Automated blood lymphocytes/100 leukocytes 14 % 12-44 Blood monocytes/100 leukocytes 15 % 0-12 Automated blood eosinophils/100 leukocytes 2 % 0-10 Automated blood basophils/100 leukocytes 0 % 0-10 Blood neutrophils automated count (number/volume) 3.5 10*3 1.8-7.8 Blood lymphocytes automated count (number/volume) 0.7 10*3 1.0-4.0 Blood monocytes automated count (number/volume) 0.8 10*3 0.0-1.0 Automated eosinophil count 0.1 10*3/uL 0.0-0.3 Automated blood basophil count (count/volume) 0.0 10*3/uL 0.0-0.1 Comprehensive metabolic panel - 05/30/16 17:30 Serum or plasma sodium measurement (moles/volume) 137 mmol/L 135-145 Serum or plasma potassium measurement (moles/volume) 4.0 mmol/L 3.6-5.0 Serum or plasma chloride measurement (moles/volume) 103 mmol/L 98-107 Carbon dioxide 23 mmol/L 21-32 Serum or plasma anion gap determination (moles/volume) 11 mmol/L 5-14 Serum or plasma urea nitrogen measurement (mass/volume) 12 mg/dL 7-18 Serum or plasma creatinine measurement (mass/volume) 0.71 mg/dL 0.60-1.30 Serum or plasma urea nitrogen/creatinine mass ratio 17 NRG Serum or plasma creatinine measurement with calculation of estimated glomerular filtration rate > NRG Serum or plasma glucose measurement (mass/volume) 106 mg/dL 70-105 Serum or plasma calcium measurement (mass/volume) 9.4 mg/dL 8.5-10.1 Serum or plasma total bilirubin measurement (mass/volume) 1.3 mg/dL 0.1-1.0 Serum or plasma alkaline phosphatase measurement (enzymatic activity/volume) 87 U/L 40-136 Serum or plasma aspartate aminotransferase measurement (enzymatic activity/ volume) 115 U/L 5-34 Serum or plasma alanine aminotransferase measurement (enzymatic activity/volume ) 209 U/L 0-55 Serum or plasma protein measurement (mass/volume) 7.9 g/dL 6.4-8.2 Serum or plasma albumin measurement (mass/volume) 4.1 g/dL 3.2-4.5 Lipase - 05/30/16 17:30 Lipase 136 U/L 8-78 Urine drug screening test - 05/31/16 02:40 Urine phencyclidine detection by screening method NEGATIVE NEGATIVE Urine benzodiazepines detection by screening method NEGATIVE NEGATIVE Urine cocaine detection NEGATIVE NEGATIVE Urine amphetamines detection by screening method NEGATIVE NEGATIVE Urine methamphetamine detection by screening method NEGATIVE NEGATIVE Urine cannabinoids detection by screening method POSITIVE NEGATIVE Urine opiates detection by screening method NEGATIVE NEGATIVE Urine barbiturates detection NEGATIVE NEGATIVE Screening urine tricyclic antidepressants detection NEGATIVE NEGATIVE Urine methadone detection by screening method NEGATIVE NEGATIVE Urine oxycodone detection POSITIVE NEGATIVE Urine propoxyphene detection NEGATIVE NEGATIVE Complete urinalysis with reflex to culture - 05/31/16 02:40 Urine color determination YELLOW NRG Urine clarity determination CLEAR NRG Urine pH measurement by test strip 7 5-9 Specific gravity of urine by test strip 1.015 1.016- 1.022 Urine protein assay by test strip, semi-quantitative NEGATIVE NEGATIVE Urine glucose detection by automated test strip NEGATIVE NEGATIVE Erythrocytes detection in urine sediment by light microscopy NEGATIVE NEGATIVE Urine ketones detection by automated test strip NEGATIVE NEGATIVE Urine nitrite detection by test strip NEGATIVE NEGATIVE Urine total bilirubin detection by test strip NEGATIVE NEGATIVE Urine urobilinogen measurement by automated test strip (mass/volume) 4 mg/dL NORMAL Urine leukocyte esterase detection by dipstick NEGATIVE NEGATIVE Automated urine sediment erythrocyte count by microscopy (number/high power field) NONE NRG Automated urine sediment leukocyte count by microscopy (number/high power field ) NONE NRG Bacteria detection in urine sediment by light microscopy NEGATIVE NRG Squamous epithelial cells detection in urine sediment by light microscopy RARE NRG Crystals detection in urine sediment by light microscopy PRESENT NRG Casts detection in urine sediment by light microscopy NONE NRG Mucus detection in urine sediment by light microscopy NEGATIVE NRG Complete urinalysis with reflex to culture NO NRG Amorphous sediment detection in urine sediment by light microscopy MOD GUERA URATES NRG Complete blood count (CBC) with automated white blood cell (WBC) differential - 05/31/16 04:35 Blood leukocytes automated count (number/volume) 3.6 10*3/uL 4.3-11.0 Blood erythrocytes automated count (number/volume) 3.52 10*6/uL 4.35-5.85 Venous blood hemoglobin measurement (mass/volume) 12.5 g/dL 13.3-17.7 Blood hematocrit (volume fraction) 35 % 40-54 Automated erythrocyte mean corpuscular volume 100 [foz_us] 80-99 Automated erythrocyte mean corpuscular hemoglobin (mass per erythrocyte) 36 pg 25-34 Automated erythrocyte mean corpuscular hemoglobin concentration measurement ( mass/volume) 36 g/dL 32-36 Automated erythrocyte distribution width ratio 11.8 % 10.0-14.5 Automated blood platelet count (count/volume) 104 10*3/uL 130-400 Automated blood platelet mean volume measurement 11.5 [foz_us] 7.4-10.4 Automated blood neutrophils/100 leukocytes 60 % 42-75 Automated blood lymphocytes/100 leukocytes 21 % 12-44 Blood monocytes/100 leukocytes 15 % 0-12 Automated blood eosinophils/100 leukocytes 4 % 0-10 Automated blood basophils/100 leukocytes 0 % 0-10 Blood neutrophils automated count (number/volume) 2.1 10*3 1.8-7.8 Blood lymphocytes automated count (number/volume) 0.8 10*3 1.0-4.0 Blood monocytes automated count (number/volume) 0.5 10*3 0.0-1.0 Automated eosinophil count 0.2 10*3/uL 0.0-0.3 Automated blood basophil count (count/volume) 0.0 10*3/uL 0.0-0.1 Comprehensive metabolic panel - 05/31/16 04:35 Serum or plasma sodium measurement (moles/volume) 135 mmol/L 135-145 Serum or plasma potassium measurement (moles/volume) 3.9 mmol/L 3.6-5.0 Serum or plasma chloride measurement (moles/volume) 106 mmol/L 98-107 Carbon dioxide 21 mmol/L 21-32 Serum or plasma anion gap determination (moles/volume) 8 mmol/L 5-14 Serum or plasma urea nitrogen measurement (mass/volume) 8 mg/dL 7-18 Serum or plasma creatinine measurement (mass/volume) 0.61 mg/dL 0.60-1.30 Serum or plasma urea nitrogen/creatinine mass ratio 13 NRG Serum or plasma creatinine measurement with calculation of estimated glomerular filtration rate > NRG Serum or plasma glucose measurement (mass/volume) 101 mg/dL 70-105 Serum or plasma calcium measurement (mass/volume) 8.4 mg/dL 8.5-10.1 Serum or plasma total bilirubin measurement (mass/volume) 1.4 mg/dL 0.1-1.0 Serum or plasma alkaline phosphatase measurement (enzymatic activity/volume) 69 U/L 40-136 Serum or plasma aspartate aminotransferase measurement (enzymatic activity/ volume) 90 U/L 5-34 Serum or plasma alanine aminotransferase measurement (enzymatic activity/volume ) 153 U/L 0-55 Serum or plasma protein measurement (mass/volume) 6.4 g/dL 6.4-8.2 Serum or plasma albumin measurement (mass/volume) 3.3 g/dL 3.2-4.5 Serum or plasma amylase measurement (enzymatic activity/volume) - 05/31/16 04: 35 Serum or plasma amylase measurement (enzymatic activity/volume) 53 U /L 25-125 Lipase - 05/31/16 04:35 Lipase 80 U/L 8-78 Automated blood complete blood count (hemogram) panel - 06/01/16 04:36 Blood leukocytes automated count (number/volume) 3.7 10*3/uL 4.3-11.0 Blood erythrocytes automated count (number/volume) 3.65 10*6/uL 4.35-5.85 Venous blood hemoglobin measurement (mass/volume) 13.0 g/dL 13.3-17.7 Blood hematocrit (volume fraction) 36 % 40-54 Automated erythrocyte mean corpuscular volume 100 [foz_us] 80-99 Automated erythrocyte mean corpuscular hemoglobin (mass per erythrocyte) 36 pg 25-34 Automated erythrocyte mean corpuscular hemoglobin concentration measurement ( mass/volume) 36 g/dL 32-36 Automated erythrocyte distribution width ratio 11.6 % 10.0-14.5 Automated blood platelet count (count/volume) 116 10*3/uL 130-400 Automated blood platelet mean volume measurement 12.3 [foz_us] 7.4-10.4 Comprehensive metabolic panel - 06/01/16 04:36 Serum or plasma sodium measurement (moles/volume) 134 mmol/L 135-145 Serum or plasma potassium measurement (moles/volume) 3.9 mmol/L 3.6-5.0 Serum or plasma chloride measurement (moles/volume) 104 mmol/L 98-107 Carbon dioxide 23 mmol/L 21-32 Serum or plasma anion gap determination (moles/volume) 7 mmol/L 5-14 Serum or plasma urea nitrogen measurement (mass/volume) 4 mg/dL 7-18 Serum or plasma creatinine measurement (mass/volume) 0.63 mg/dL 0.60-1.30 Serum or plasma urea nitrogen/creatinine mass ratio 6 NRG Serum or plasma creatinine measurement with calculation of estimated glomerular filtration rate > NRG Serum or plasma glucose measurement (mass/volume) 97 mg/dL 70-105 Serum or plasma calcium measurement (mass/volume) 8.7 mg/dL 8.5-10.1 Serum or plasma total bilirubin measurement (mass/volume) 1.4 mg/dL 0.1-1.0 Serum or plasma alkaline phosphatase measurement (enzymatic activity/volume) 71 U/L 40-136 Serum or plasma aspartate aminotransferase measurement (enzymatic activity/ volume) 70 U/L 5-34 Serum or plasma alanine aminotransferase measurement (enzymatic activity/volume ) 134 U/L 0-55 Serum or plasma protein measurement (mass/volume) 6.6 g/dL 6.4-8.2 Serum or plasma albumin measurement (mass/volume) 3.5 g/dL 3.2-4.5 Complete blood count (CBC) with automated white blood cell (WBC) differential - 10/06/16 14:27 Blood leukocytes automated count (number/volume) 5.0 10*3/uL 4.3-11.0 Blood erythrocytes automated count (number/volume) 4.16 10*6/uL 4.35-5.85 Venous blood hemoglobin measurement (mass/volume) 14.3 g/dL 13.3-17.7 Blood hematocrit (volume fraction) 41 % 40-54 Automated erythrocyte mean corpuscular volume 100 [foz_us] 80-99 Automated erythrocyte mean corpuscular hemoglobin (mass per erythrocyte) 34 pg 25-34 Automated erythrocyte mean corpuscular hemoglobin concentration measurement ( mass/volume) 35 g/dL 32-36 Automated erythrocyte distribution width ratio 12.2 % 10.0-14.5 Automated blood platelet count (count/volume) 157 10*3/uL 130-400 Automated blood platelet mean volume measurement 11.0 [foz_us] 7.4-10.4 Automated blood neutrophils/100 leukocytes 74 % 42-75 Automated blood lymphocytes/100 leukocytes 15 % 12-44 Blood monocytes/100 leukocytes 10 % 0-12 Automated blood eosinophils/100 leukocytes 1 % 0-10 Automated blood basophils/100 leukocytes 0 % 0-10 Blood neutrophils automated count (number/volume) 3.7 10*3 1.8-7.8 Blood lymphocytes automated count (number/volume) 0.8 10*3 1.0-4.0 Blood monocytes automated count (number/volume) 0.5 10*3 0.0-1.0 Automated eosinophil count 0.0 10*3/uL 0.0-0.3 Automated blood basophil count (count/volume) 0.0 10*3/uL 0.0-0.1 Comprehensive metabolic panel - 10/06/16 14:27 Serum or plasma sodium measurement (moles/volume) 139 mmol/L 135-145 Serum or plasma potassium measurement (moles/volume) 3.6 mmol/L 3.6-5.0 Serum or plasma chloride measurement (moles/volume) 102 mmol/L 98-107 Carbon dioxide 26 mmol/L 21-32 Serum or plasma anion gap determination (moles/volume) 11 mmol/L 5-14 Serum or plasma urea nitrogen measurement (mass/volume) 10 mg/dL 7-18 Serum or plasma creatinine measurement (mass/volume) 0.73 mg/dL 0.60-1.30 Serum or plasma urea nitrogen/creatinine mass ratio 14 NRG Serum or plasma creatinine measurement with calculation of estimated glomerular filtration rate > NRG Serum or plasma glucose measurement (mass/volume) 98 mg/dL 70-105 Serum or plasma calcium measurement (mass/volume) 9.4 mg/dL 8.5-10.1 Serum or plasma total bilirubin measurement (mass/volume) 0.6 mg/dL 0.1-1.0 Serum or plasma alkaline phosphatase measurement (enzymatic activity/volume) 99 U/L 40-136 Serum or plasma aspartate aminotransferase measurement (enzymatic activity/ volume) 149 U/L 5-34 Serum or plasma alanine aminotransferase measurement (enzymatic activity/volume ) 191 U/L 0-55 Serum or plasma protein measurement (mass/volume) 8.1 g/dL 6.4-8.2 Serum or plasma albumin measurement (mass/volume) 4.0 g/dL 3.2-4.5 Lipase - 10/06/16 14:27 Lipase 51 U/L 8-78 Complete blood count (CBC) with automated white blood cell (WBC) differential - 11/17/16 09:35 Blood leukocytes automated count (number/volume) 4.9 10*3/uL 4.3-11.0 Blood erythrocytes automated count (number/volume) 4.08 10*6/uL 4.35-5.85 Venous blood hemoglobin measurement (mass/volume) 13.9 g/dL 13.3-17.7 Blood hematocrit (volume fraction) 41 % 40-54 Automated erythrocyte mean corpuscular volume 100 [foz_us] 80-99 Automated erythrocyte mean corpuscular hemoglobin (mass per erythrocyte) 34 pg 25-34 Automated erythrocyte mean corpuscular hemoglobin concentration measurement ( mass/volume) 34 g/dL 32-36 Automated erythrocyte distribution width ratio 12.6 % 10.0-14.5 Automated blood platelet count (count/volume) 131 10*3/uL 130-400 Automated blood platelet mean volume measurement 11.9 [foz_us] 7.4-10.4 Automated blood neutrophils/100 leukocytes 72 % 42-75 Automated blood lymphocytes/100 leukocytes 17 % 12-44 Blood monocytes/100 leukocytes 11 % 0-12 Automated blood eosinophils/100 leukocytes 0 % 0-10 Automated blood basophils/100 leukocytes 0 % 0-10 Blood neutrophils automated count (number/volume) 3.5 10*3 1.8-7.8 Blood lymphocytes automated count (number/volume) 0.8 10*3 1.0-4.0 Blood monocytes automated count (number/volume) 0.6 10*3 0.0-1.0 Automated eosinophil count 0.0 10*3/uL 0.0-0.3 Automated blood basophil count (count/volume) 0.0 10*3/uL 0.0-0.1 Methicillin resistant Staphylococcus aureus (MRSA) screening culture - 09:35 Methicillin resistant Staphylococcus aureus (MRSA) screening culture NEG NRG Encounters ACCT No. Visit Date/Time Discharge Status Pt. Type Provider Facility Loc./Unit Complaint [id number] 11/20/2016 08:33:00 11/21/2016 18:16:00 DIS Outpatient RON ZALDIVAR MD [facility] SDC VENTRAL HERNIA [id number] 11/17/2016 09:17:00 11/17/2016 09:40:00 DIS Outpatient RON ZALDIVAR MD [facility] PREOP VENTRAL HERNIA [id number] 10/06/2016 13:58:00 10/06/2016 23:59:59 CLS Outpatient MARY COLLINS MD [facility] RAD K43.2 [id number] 05/30/2016 17:13:00 06/01/2016 12:15:00 DIS Inpatient MARY COLLINS MD [facility] 4TH DYSPHAGIA [id number] 02/20/2016 13:33:00 02/20/2016 23:59:59 CLS Outpatient RON ZALDIVAR MD [facility] LAB ABD PAINS [id number] 02/11/2016 09:01:00 02/11/2016 23:59:59 CLS Outpatient ADDISON HERNANDEZ [facility] RAD ELEVATED LIVER ENZYMES, NAUSEA [id number] 07/19/2015 10:29:00 07/24/2015 10:45:00 DIS Inpatient MAYITO COHN MD [facility] 4TH PANCREATITIS [id number] 02/22/2015 07:34:00 02/22/2015 09:15:00 DIS Outpatient KATYA AUGUSTIN MD [facility] SDC ABDOMINAL PAIN [id number] 02/21/2015 12:41:00 02/21/2015 23:59:59 CLS Outpatient KATYA AUGUSTIN MD [facility] PREOP ABDOMINAL PAIN [id number] 02/19/2015 10:40:00 02/19/2015 23:59:59 CLS Outpatient KATYA AUGUSTIN MD [facility] RAD PANCREATIC CYSTS, [id number] 11/22/2014 08:28:00 11/28/2014 12:00:00 DIS Inpatient KATYA AUGUSTIN MD [facility] SURGICAL PANCREATIC CYST [id number] 11/21/2014 08:42:00 11/21/2014 23:59:59 CLS Outpatient KATYA AUGUSTIN MD [facility] PREOP PANCREATIC CYST [id number] 11/16/2014 12:45:00 11/16/2014 23:59:59 CLS Outpatient KATYA AUGUSTIN MD [facility] RAD [id number] 04/25/2014 11:15:00 04/25/2014 23:59:59 CLS Outpatient [id number] 12/16/2013 11:54:00 03/16/2014 00:01:00 DIS Outpatient KATYA AUGUSTIN MD [facility] LAB [id number] 01/25/2014 15:44:00 01/25/2014 23:59:59 CLS Outpatient KATYA AUGUSTIN MD [facility] LAB [id number] 01/03/2014 09:01:00 01/03/2014 23:59:59 CLS Outpatient KATYA AUGUSTIN MD [facility] RAD [id number] 12/12/2013 10:04:00 12/12/2013 23:59:59 CLS Outpatient DEMETRIA VILLASEÑOR, KATYA Pool [facility] LAB [id number] 11/30/2013 18:07:00 12/07/2013 18:00:00 DIS Inpatient DEMETRIA VILLASEÑOR, KATYA Pool [facility] SURGICAL [id number] 11/30/2013 11:49:00 11/30/2013 23:59:59 CLS Outpatient MELIA KONG [facility] RAD [id number] 11/30/2013 12:26:00 11/30/2013 14:23:00 DIS Emergency SANJAY HENDERSON APRN [facility] ER [id number] 06/01/2013 16:45:00 06/08/2013 14:00:00 DIS Inpatient LALIT VILLASEÑOR, MAYITO Gross [address] [id number] 03/17/2014 00:00:00 Document Registration
== END 2017-08-14 15:55 | disposition home or self-care (01) ==
LOC: EDUNIT# 11:08 → ER 11:10
DX: S39.011A Strain of muscle, fascia and tendon of abdomen, initial encounter (principal); R74.0 Nonspecific elevation of levels of transaminase and lactic acid dehydrogenase [LDH]; I10 Essential (primary) hypertension; K21.9 Gastro-esophageal reflux disease without esophagitis; F31.9 Bipolar disorder, unspecified; F41.9 Anxiety disorder, unspecified; F12.10 Cannabis abuse, uncomplicated; F17.210 Nicotine dependence, cigarettes, uncomplicated; Z87.19 Personal history of other diseases of the digestive system; Z80.0 Family history of malignant neoplasm of digestive organs; Z82.49 Family history of ischemic heart disease and other diseases of the circulatory system; Z87.01 Personal history of pneumonia (recurrent); Z98.890 Other specified postprocedural states; X58.XXXA Exposure to other specified factors, initial encounter
CPT/HCPCS: 36415; 74177; 80053; 81000; 83615; 83690; 85025

== ENCOUNTER 2021-02-13 00:52 | Emergency (ER) | payer SELFPAY ==
[~2021-02-13] VITALS: Ht 177.8 cm; Wt 72.6 kg
[~2021-02-13 00:52] MED LIST changes: -LISI40TA PO; +LISI40TA9 PO; -OXYC-197 PO; -PANT40TA3 PO; +PANT40TA52 PO
[2021-02-13] MEDS ORDERED: morphine INJ 10 MG/ML 1ML (SYR OR VIAL) IVP STA (01:02)
--- NOTE | 2021-02-13 01:08 | ED Abdominal Pain ---
General Stated Complaint: ABD PAIN Source of Information: Patient Exam Limitations: No Limitations History of Present Illness Date Seen by Provider: Feb 13, 2021 Time Seen by Provider: 00:55 Initial Comments Patient is a 50-year-old male who presents to the emergency room with a severe abdominal pain. Patient states that he was asleep and woke up suddenly about an hour ago with intense and severe 10 out of 10 epigastric abdominal pain. Patient states he has never had a pain like this before. He denies any nausea or vomiting. He denies any problems with bowels. No black or bloody stools. He has had previous abdominal surgery he states rerouting a duct from his pancreas and has a history of chronic pancreatitis. He states that he had about a sixpack of beer earlier today. No recent fevers chills, cough congestion or shortness of breath however his significant other who he lives with was tested positive for Covid in the last couple of days. Patient states he had a negative test last week. He denies any urinary complaints. He has not taken anything for the pain. He points to an area of about 8 cm in diameter at the epigastrium. He thinks it is his hernia. All other review of systems reviewed and negative except as stated above. Timing/Duration: 1 Hour Severity/Quality: Severe Location: Epigastric Radiation: No Radiation Activities at Onset: Sleeping Modifying Factors: Worsens With Breathing Associated Symptoms: Denies Symptoms Allergies and Home Medications Allergies Coded Allergies: No Known Drug Allergies (Unverified , 07/19/15) Home Medications Lansoprazole 30 Mg Capsule.dr, 30 MG PO DAILY, (Reported) Oxycodone HCl/Acetaminophen 1 Each Tablet, 1 EACH PO Q4H PRN for ABDOMINAL PAIN Prescribed by: RON ZALDIVAR on 11/20/16 1244 Patient Home Medication List Home Medication List Reviewed: Yes Review of Systems Review of Systems Constitutional: see HPI EENTM: No Symptoms Reported Respiratory: No Symptoms Reported Cardiovascular: No Symptoms Reported Gastrointestinal: Abdominal Pain (severe) Genitourinary: No Symptoms Reported Musculoskeletal: no symptoms reported Skin: no symptoms reported All Other Systems Reviewed Negative Unless Noted: Yes Past Fobqspf-Btkqae-Wsoscg Hx Immunizations Up To Date Tetanus Booster (TDap): Unknown Seasonal Allergies Seasonal Allergies: No Past Medical History Surgeries: Yes (pancreatic cyst laposcopic once and open, shent put in pancreas) Abdominal Respiratory: No Pneumonia Currently Using CPAP: No Currently Using BIPAP: No Cardiac: Yes Hypertension Neurological: No Reproductive Disorders: No Sexually Transmitted Disease: No HIV/AIDS: No Genitourinary: No Gastrointestinal: Yes Abdominal Hernia, Gastroesophageal Reflux, Pancreatitis Musculoskeletal: No Endocrine: No HEENT: No Loss of Vision: Denies Hearing Impairment: Denies Cancer: No Psychosocial: Yes Anxiety, Bipolar Integumentary: No Recent Skin Changes Blood Disorders: No Adverse Reaction/Blood Tranf: No Family Medical History Alcoholism 03 FATHER Cancer 03 FATHER (CANCER OF JAW) Family history: Cardiovascular disease 03 FATHER Family history: Diabetes mellitus 03 MOTHER 09 SISTER No Pertinent Family Hx, Diabetes, Hypertension Physical Exam Vital Signs Vital Signs - First Documented 02/13/21 01:00 Temp 36.4 Pulse 105 Resp 18 B/P (MAP) 156/119 (131) Pulse Ox 100 O2 Delivery Room Air Capillary Refill : Height/Weight/BMI Height: 5'10.00" Weight: 160lbs. 6.0oz. [id number]; 24.5 BMI Method:Stated General Appearance: WD/WN, severe distress HEENT: PERRL/EOMI Respiratory: lungs clear, normal breath sounds, no respiratory distress, no accessory muscle use Cardiovascular: regular rate, rhythm Gastrointestinal: abnormal bowel sounds (hypoactive), guarding, tenderness (midline epigastric), other (pain seems a little out of proportion to exam, patient is a little distractable, he does have a tiny soft reducible ventral hernia; he persists in guarding and flexing his abdominal wall. does not allow really any palpation of the abdomen. seems to be most tender around his midline scar. not tympanic. not distended) Extremities: normal inspection Neurologic/Psychiatric: no motor/sensory deficits, alert, normal mood/affect, oriented x 3, other (super agitated and anxious) Skin: normal color, warm/dry Progress/Results/Core Measures Results/Orders Lab Results Laboratory Tests Test 02/13/21 01:07 Range/Units White Blood Count 6.3 4.3-11.0 10^3/uL Red Blood Count 4.36 4.30-5.52 10^6/uL Hemoglobin 14.9 13.3-17.7 g/dL Hematocrit 42 40-54 % Mean Corpuscular Volume 96 80-99 fL Mean Corpuscular Hemoglobin 34 25-34 pg Mean Corpuscular Hemoglobin Concent 36 32-36 g/dL Red Cell Distribution Width 12.0 10.0-14.5 % Platelet Count 155 130-400 10^3/uL Mean Platelet Volume 11.4 9.0-12.2 fL Immature Granulocyte % (Auto) 0 % Neutrophils (%) (Auto) 72 42-75 % Lymphocytes (%) (Auto) 19 12-44 % Monocytes (%) (Auto) 8 0-12 % Eosinophils (%) (Auto) 0 0-10 % Basophils (%) (Auto) 1 0-10 % Neutrophils # (Auto) 4.5 1.8-7.8 10^3/uL Lymphocytes # (Auto) 1.2 1.0-4.0 10^3/uL Monocytes # (Auto) 0.5 0.0-1.0 10^3/uL Eosinophils # (Auto) 0.0 0.0-0.3 10^3/uL Basophils # (Auto) 0.0 0.0-0.1 10^3/uL Immature Granulocyte # (Auto) 0.0 0.0-0.1 10^3/uL Sodium Level 131 L 135-145 MMOL/L Potassium Level 3.4 L 3.6-5.0 MMOL/L Chloride Level 94 L 98-107 MMOL/L Carbon Dioxide Level 21 21-32 MMOL/L Anion Gap 16 H 5-14 MMOL/L Blood Urea Nitrogen 12 7-18 MG/DL Creatinine 0.98 0.60-1.30 MG/DL Estimat Glomerular Filtration Rate 81 BUN/Creatinine Ratio 12 Glucose Level 353 H 70-105 MG/DL Calcium Level 9.8 8.5-10.1 MG/DL Corrected Calcium 9.7 8.5-10.1 MG/DL Total Bilirubin 1.3 H 0.1-1.0 MG/DL Aspartate Amino Transf (AST/SGOT) 97 H 5-34 U/L Alanine Aminotransferase (ALT/SGPT) 116 H 0-55 U/L Alkaline Phosphatase 96 40-136 U/L Total Protein 9.1 H 6.4-8.2 GM/DL Albumin 4.1 3.2-4.5 GM/DL Lipase 60 8-78 U/L SARS-CoV-2 RNA (RT-PCR) Not Detected Not Detecte My Orders Orders - ANTHONY WRIGHT MD Ed Iv/Invasive Line Start (02/13/21 01:02) Cbc With Automated Diff (02/13/21 01:02) Comprehensive Metabolic Panel (02/13/21 01:02) Lipase (02/13/21 01:02) Ct Abdomen/Pelvis W (02/13/21 01:02) Ns Iv 1000 Ml (Sodium Chloride 0.9%) (02/13/21 01:15) Morphine Injection (Morphine Injection (02/13/21 01:02) Ondansetron Injection (Zofran Injectio (02/13/21 01:15) Covid 19 Inhouse Test (02/13/21 01:02) Hydromorphone Injection (Dilaudid Inject (02/13/21 02:00) Iohexol Injection (Omnipaque 350 Mg/Ml 1 (02/13/21 03:00) Received Contrast (Hold Metformin- Contr (02/13/21 03:00) Ns (Ivpb) (Sodium Chloride 0.9% Ivpb Bag (02/13/21 03:00) Dicyclomine Injection (Bentyl Injection) (02/13/21 03:09) Rx-Hydrocodone/Apap 5-325 Mg (Rx-Vicodin (02/13/21 04:15) Ketorolac Injection (Toradol Injection) (02/13/21 04:15) Hydrocodone/Apap 7.5/325 Tab (Lortab 7. (02/13/21 04:15) Medications Given in ED Current Medications Medications Dose Ordered Sig/Winsome Route Start Time Stop Time Status Last Admin Dose Admin Hydromorphone HCl 1 mg ONCE ONCE IV 02/13/21 02:00 02/13/21 02:01 DC 02/13/21 02:01 1 MG Iohexol 100 ml ONCE ONCE IV 02/13/21 03:00 02/13/21 03:01 DC 02/13/21 03:04 100 ML Ondansetron HCl 4 mg ONCE ONCE IVP 02/13/21 01:15 02/13/21 01:16 DC 02/13/21 01:38 4 MG Sodium Chloride 100 ml ONCE ONCE IV 02/13/21 03:00 02/13/21 03:01 DC 02/13/21 03:04 80 ML Vital Signs/I&O 02/13/21 01:00 Temp 36.4 Pulse 105 Resp 18 B/P (MAP) 156/119 (131) Pulse Ox 100 O2 Delivery Room Air Progress Progress Note : Time: 04:07 Progress Note Reevaluated patient after morphine, Dilaudid, IV fluids and Bentyl. Patient is still complaining of significant mid abdominal pain. Labs have been reviewed and are reassuring. CBC is completely normal. Patient has chronic elevation in his liver function studies. He has had previous pancreatic stent placements as well as a stent from the stomach to the tail of the pancreas. Patient states that he saw Dr. Thayer in [place] to have that procedure done. Patient has not had any follow-up since that time. He states he has never had pain like this before. He does look a little bit better after the medications but is still saying that he hurts "so bad". I am going to give him some Toradol IV as well a s a p.o. hydrocodone. I do not see anything concerning on his CAT scan read. There is no evidence of pancreatitis, obstruction, bowel perforation, free fluid, gallbladder issues, pancreatic pseudocyst etc. I do not believe this is a surgical problem. I do not believe that he has an acute infectious process. It may be early on and at this point without any significant findings to support admission I am going to discharge him to home with some hydrocodone. I have advised him to follow a clear liquid diet. Use ibuprofen as needed. Contact his doctor today for further instructions and evaluation. He needs to come back to the emergency room if his pain worsens, if he gets fever or if he is vomiting blood or passing blood in his stool. He verbalizes understanding. All questions are sought and answered. Diagnostic Imaging Diagonstic Imaging: CT Plain Films/CT/US/NM/MRI: abdomen Comments CT scan of the abdomen and pelvis with IV contrast shows #[address]. The pancreatic duct is dilated at 7 mm there is no sign of acute p ancreatitis. There is also a stent extending from the stomach to the tail of the pancreas. There is no pancreatic pseudocyst. #2 Marked fatty liver. Mild splenomegaly. 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 The portal vein is faint. Interpretation per stat rad Departure Impression Primary Impression: Abdominal pain Qualified Codes: R10.13 - Epigastric pain Additional Impressions: Elevated liver function tests Hyperglycemia Disposition: HOME, SELF-CARE Condition: Improved Departure-Patient Inst. Decision time for Depature: 03:51 Referrals: MARY COLLINS MD (PCP/Family) Primary Care Physician Patient Instructions: High Blood Sugar, Adult, Severe Abdominal Pain Add. Discharge Instructions: Drink plenty of fluids to stay well-hydrated. Follow a clear liquid diet for the next 12 to 24 hours and then slowly advance your diet as tolerated. Your blood sugar was extremely elevated today (over 300) you will need to talk to your doctor about being put on medications for diabetes. Watch your sugar i ntake closely. Please call and follow-up with your primary care physician TODAY. A copy of your medical record from today's visit has been sent to your primary care provider's office. You have no sign of anything acutely infectious or obstructed or ruptured in your abdomen. No specific finding for your abdominal pain was discovered tonight. You should monitor your symptoms, take Tylenol and/or ibuprofen as needed. I have given you a few tablets of hydrocodone this evening to take home. Use these only as needed. Avoid drinking alcohol. Return to the emergency room for re-evaluation if you have return of pain especially with fever vomiting, passing blood or any other emergent concerning symptoms. Copy Copies To 1: MARY COLLINS MD, KATHRYN M MD Feb 13, 2021 01:07
[2021-02-13] MEDS ORDERED: NS IV 1000 ML 1,000 ML IV SCH (01:15)
[2021-02-13] MEDS ORDERED: ONDANSETRON 4 MG/2 ML (SDV) Z0FRAN IVP ONE (01:15)
[2021-02-13 01:20] LABS: BASOPHILS % (AUTO) 1 % (0-10); EOSINOPHILS % (AUTO) 0 % (0-10); HEMATOCRIT 42 % (40-54); HEMOGLOBIN 14.9 g/dL (13.3-17.7); LYMPHOCYTES # (AUTO) 1.2 10^3/uL (1.0-4.0); LYMPHOCYTES % (AUTO) 19 % (12-44); MEAN CORPUSCULAR HEMOGLOBIN 34 pg (25-34); MEAN CORPUSCULAR HGB CONC 36 g/dL (32-36); MEAN CORPUSCULAR VOLUME 96 fL (80-99); MEAN PLATELET VOLUME 11.4 fL (9.0-12.2); MONOCYTES # (AUTO) 0.5 10^3/uL (0.0-1.0); MONOCYTES % (AUTO) 8 % (0-12); NEUTROPHILS # (AUTO) 4.5 10^3/uL (1.8-7.8); NEUTROPHILS % (AUTO) 72 % (42-75); PLATELET COUNT 155 10^3/uL (130-400); WHITE BLOOD COUNT 6.3 10^3/uL (4.3-11.0)
[2021-02-13 01:28] LABS: ALBUMIN 4.1 GM/DL (3.2-4.5)
[2021-02-13 01:29] LABS: POTASSIUM 3.4 MMOL/L (3.6-5.0)
[2021-02-13 01:30] LABS: CALCIUM 9.8 MG/DL (8.5-10.1)
[2021-02-13 01:31] LABS: TOTAL PROTEIN 9.1 GM/DL (6.4-8.2)
[2021-02-13 01:33] LABS: BILIRUBIN,TOTAL 1.3 MG/DL (0.1-1.0)
[2021-02-13 01:35] LABS: CREATININE SERUM 0.98 MG/DL (0.60-1.30)
[2021-02-13] MEDS ORDERED: HYDROmorphone 2 MG/ML VIAL (DILAUDID) IV ONE (02:00)
[2021-02-13] MEDS ORDERED: HOLD METFORMIN - RECEIVED CONTRAST 20 ML VIAL IV SCH (03:00)
[2021-02-13] MEDS ORDERED: NS 100 ML (IVPB) BAG IV ONE (03:00)
[2021-02-13] MEDS ORDERED: IOHEXOL 350 MG/ML 100 ML (OMNIPAQUE 350) VIAL IV ONE (03:00)
[2021-02-13] MEDS ORDERED: DICYCLOMINE 10 MG/ML (BENTYL) 2 ML AMP IM STA (03:09)
[2021-02-13] MEDS ORDERED: KETOROLAC 30 MG/ML VIAL IVP ONE (04:15)
[2021-02-13] MEDS ORDERED: HYDROcodone/APAP 7.5 MG/325 MG (LORTAB, LORCET PLUS) TABLET PO ONE (04:15)
[2021-02-13 04:33] VITALS: BP 147/115
--- NOTE | 2021-02-13 06:38 | Diagnostic Imaging Report ---
PROCEDURE: CT abdomen and pelvis with contrast. TECHNIQUE: Multiple contiguous axial images were obtained through the abdomen and pelvis after administration of intravenous contrast. Auto Exposure Controls were utilized during the CT exam to meet ALARA standards for radiation dose reduction. All CT scans use one or more of the following dose optimizing techniques: automated exposure control, MA and/or KvP adjustment based on patient size and exam type or iterative reconstruction. INDICATION: Epigastric pain, pancreatic stent COMPARISON: 01/11/2018 FINDINGS: The lung bases are clear. There is persistent but slightly decreased splenomegaly. There is diffuse fatty infiltration liver. The gallbladder is intact. The pancreatic duct is dilated 7 mm. There are several pancreatic and gastric stents that appear to be in stable position. 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 The portal vein is widely patent. No inflammatory process is seen involving the pancreas. There is no obvious pseudocyst formation. The adrenal glands, kidneys, vascular structures and bowel are unremarkable. There is no free air or free fluid. There is slight distention urinary bladder. The prostate is nonenlarged. Osseous structures are age-appropriate. There is no free air or free fluid. IMPRESSION: Extensive fatty liver without evidence of mass or intrahepatic biliary duct dilatation. Stable appearing position of the pancreatic and gastric stents. The pancreatic duct is dilated to 7 mm. Continued follow-up recommended. No inflammatory process pancreatic pseudocyst or ascites. Suspect a chronic thrombosis of the splenic vein. Most of several gastric collaterals are present. Mild splenomegaly is stable. Agree with preliminary report Dictated by: Dictated on workstation # [id number]
== END 2021-02-13 04:33 | disposition home or self-care (01) ==
LOC: EDUNIT# 00:52 → ER 00:54
DX: R10.13 Epigastric pain (principal); R73.9 Hyperglycemia, unspecified; I10 Essential (primary) hypertension; K21.9 Gastro-esophageal reflux disease without esophagitis; Z20.822 Contact with and (suspected) exposure to COVID-19; Z79.899 Other long term (current) drug therapy
CPT/HCPCS: 36415; 74177; 80053; 83690; 85025; 87636

== ENCOUNTER 2022-05-30 23:09 | Observation (INO) | payer SELFPAY ==
[~2022-05-30] VITALS: Ht 178 cm; Wt 61.7 kg
[2022-05-30] MEDS ORDERED: morphine INJ 10 MG/ML 1ML (SYR OR VIAL) IVP STA (23:43)
[2022-05-30] MEDS ORDERED: NS IV 1000 ML 1,000 ML IV STA (23:43)
[2022-05-30] MEDS ORDERED: KETOROLAC 30 MG/ML VIAL IVP ONE (23:45)
[2022-05-30] MEDS ORDERED: ONDANSETRON 4 MG/2 ML (SDV) Z0FRAN IVP ONE (23:45)
--- NOTE | 2022-05-30 23:49 | ED Abdominal Pain ---
General Chief Complaint: Abdominal/GI Problems Stated Complaint: ABD PAIN Source of Information: Patient Exam Limitations: No Limitations History of Present Illness Date Seen by Provider: May 30, 2022 Time Seen by Provider: 23:12 Initial Comments 51yoM with PMH of previous pancreatic pseudocyst s/p removal and pancreatic stent coming in due to upper abdominal pain. Pain started roughly 2 hours ago, constant, sharp, nothing seems to make it better or worse. Had 1 episode of nonbloody nonbilious vomiting. Had a bowel movement that was normal earlier today. Denies any fever, cough, chest pain, shortness of breath, weakness, numbness, or any other concerns. He believes that a "hernia popped out" while lifting something. Allergies and Home Medications Allergies Coded Allergies: No Known Drug Allergies (Unverified , 07/19/15) Patient Home Medication List Home Medication List Reviewed: Yes Lansoprazole (Lansoprazole) 30 Mg Capsule.dr, 30 MG PO DAILY, (Reported) Entered as Reported by: RAFAL NORMAN on 11/17/16 0928 Oxycodone HCl/Acetaminophen (Percocet 5-325 mg Tablet) 1 Each Tablet, 1 EACH PO Q4H PRN for ABDOMINAL PAIN Prescribed by: RON ZALDIVAR on 11/20/16 1244 Review of Systems Review of Systems Constitutional: No fever EENTM: No Symptoms Reported Respiratory: No Symptoms Reported Cardiovascular: No Symptoms Reported Gastrointestinal: See HPI Genitourinary: No Symptoms Reported Musculoskeletal: no symptoms reported Skin: no symptoms reported Psychiatric/Neurological: No Symptoms Reported Endocrine: No Symptoms Reported Hematologic/Lymphatic: No Symptoms Reported All Other Systems Reviewed Negative Unless Noted: Yes Past Gyyeqbo-Zcnhpn-Tvbgfs Hx Patient Social History Substance use?: No Alcohol Use?: Yes Alcohol Frequency: Daily Immunizations Up To Date Tetanus Booster (TDap): Unknown Seasonal Allergies Seasonal Allergies: No Past Medical History Surgeries: Yes (pancreatic cyst laposcopic once and open, shent put in pancreas) Abdominal Respiratory: No Pneumonia Currently Using CPAP: No Currently Using BIPAP: No Cardiac: Yes Hypertension Neurological: No Reproductive Disorders: No Sexually Transmitted Disease: No HIV/AIDS: No Genitourinary: No Gastrointestinal: Yes Abdominal Hernia, Gastroesophageal Reflux, Pancreatitis Musculoskeletal: No Endocrine: No HEENT: No Loss of Vision: Denies Hearing Impairment: Denies Cancer: No Psychosocial: Yes Anxiety, Bipolar Integumentary: No Recent Skin Changes Blood Disorders: No Adverse Reaction/Blood Tranf: No Family Medical History Alcoholism 03 FATHER Cancer 03 FATHER (CANCER OF JAW) Family history: Cardiovascular disease 03 FATHER Family history: Diabetes mellitus 03 MOTHER 09 SISTER No Pertinent Family Hx, Diabetes, Hypertension Physical Exam Vital Signs Vital Signs - First Documented 05/30/22 23:39 Temp 36.4 Pulse 109 Resp 22 B/P (MAP) 123/75 (91) Pulse Ox 98 O2 Delivery Room Air Capillary Refill : Height/Weight/BMI Height: 5'10.00" Weight: 160lbs. 6.0oz. 72.947284cs; 22.00 BMI Method:Stated General Appearance: WD/WN, mild distress HEENT: PERRL/EOMI, normal ENT inspection, pharynx normal Neck: non-tender, full range of motion, supple, normal inspection Respiratory: chest non-tender, lungs clear, normal breath sounds, no respiratory distress, no accessory muscle use Cardiovascular: regular rate, rhythm, no edema, no murmur Gastrointestinal: normal bowel sounds, soft; No distended, No guarding, No rebound; tenderness, hernia (Ventral hernia over the linear surgical scar on his abdomen, easily reducible) Extremities: normal range of motion, non-tender, normal inspection, no pedal edema, no calf tenderness, normal capillary refill Back: normal inspection, no CVA tenderness Neurologic/Psychiatric: no motor/sensory deficits, alert, normal mood/affect Skin: normal color, warm/dry Lymphatic: no adenopathy Focused Exam Lactate Level 05/30/22 23:47: Lactic Acid Level 2.44*H Lactic Acid Level Laboratory Tests Test 05/30/22 23:47 Lactic Acid Level 2.44 MMOL/L (0.50-2.00) *H Progress/Results/Core Measures Results/Orders Lab Results Laboratory Tests Test 05/30/22 23:47 05/31/22 00:40 05/31/22 00:49 05/31/22 01:22 Range/Units White Blood Count 4.7 4.3-11.0 10^3/uL Red Blood Count 3.96 L 4.30-5.52 10^6/uL Hemoglobin 13.1 L 13.3-17.7 g/dL Hematocrit 37 L 40-54 % Mean Corpuscular Volume 93 80-99 fL Mean Corpuscular Hemoglobin 33 25-34 pg Mean Corpuscular Hemoglobin Concent 36 32-36 g/dL Red Cell Distribution Width 11.9 10.0-14.5 % Platelet Count 153 130-400 10^3/uL Mean Platelet Volume 11.0 9.0-12.2 fL Immature Granulocyte % (Auto) 2 % Neutrophils (%) (Auto) 53 42-75 % Lymphocytes (%) (Auto) 37 12-44 % Monocytes (%) (Auto) 7 0-12 % Eosinophils (%) (Auto) 0 0-10 % Basophils (%) (Auto) 1 0-10 % Neutrophils # (Auto) 2.5 1.8-7.8 10^3/uL Lymphocytes # (Auto) 1.7 1.0-4.0 10^3/uL Monocytes # (Auto) 0.3 0.0-1.0 10^3/uL Eosinophils # (Auto) 0.0 0.0-0.3 10^3/uL Basophils # (Auto) 0.0 0.0-0.1 10^3/uL Immature Granulocyte # (Auto) 0.1 0.0-0.1 10^3/uL Sodium Level 129 L 135-145 MMOL/L Potassium Level 3.9 3.6-5.0 MMOL/L Chloride Level 89 L 98-107 MMOL/L Carbon Dioxide Level 22 21-32 MMOL/L Anion Gap 18 H 5-14 MMOL/L Blood Urea Nitrogen 9 7-18 MG/DL Creatinine 1.16 0.60-1.30 MG/DL Estimat Glomerular Filtration Rate 76 BUN/Creatinine Ratio 8 Glucose Level 674 *H 70-105 MG/DL Lactic Acid Level 2.44 *H 0.50-2.00 MMOL/L Calcium Level 10.1 8.5-10.1 MG/DL Corrected Calcium 10.2 H 8.5-10.1 MG/DL Total Bilirubin 0.7 0.1-1.0 MG/DL Aspartate Amino Transf (AST/SGOT) 336 H 5-34 U/L Alanine Aminotransferase (ALT/SGPT) 307 H 0-55 U/L Alkaline Phosphatase 92 40-136 U/L C-Reactive Protein High Sensitivity 1.32 H 0.00-0.50 MG/DL Total Protein 9.2 H 6.4-8.2 GM/DL Albumin 3.9 3.2-4.5 GM/DL Lipase 58 8-78 U/L Blood Gas Puncture Site NA Blood Gas Patient Temperature 36.4 Arterial Blood pH 7.40 7.37-7.43 Arterial Blood Partial Pressure CO2 44 35-45 MMHG Arterial Blood Partial Pressure O2 25 *L 79-93 MMHG Arterial Blood HCO3 27 23-27 MMOL/L Arterial Blood Total CO2 28.0 21.0-31.0 MMOL/L Arterial Blood Oxygen Saturation 35 L 94-100 % Arterial Blood Base Excess 2.1 -2.5-2.5 MMOL/L Devante Test NA Blood Gas Ventilator Setting NA Blood Gas Inspired Oxygen NA Urine Color YELLOW Urine Clarity CLEAR Urine pH 6.5 5-9 Urine Specific [place] <=1.005 1.016-1.022 Urine Protein NEGATIVE NEGATIVE Urine Glucose (UA) 3+ H NEGATIVE Urine Ketones 1+ H NEGATIVE Urine Nitrite NEGATIVE NEGATIVE Urine Bilirubin NEGATIVE NEGATIVE Urine Urobilinogen 1.0 < = 1.0 MG/DL Urine Leukocyte Esterase NEGATIVE NEGATIVE Urine RBC (Auto) NEGATIVE NEGATIVE Urine RBC NONE /HPF Urine WBC NONE /HPF Urine Crystals NONE /LPF Urine Bacteria NEGATIVE /HPF Urine Casts NONE /LPF Urine Mucus NEGATIVE /LPF Urine Culture Indicated NO Urine Opiates Screen POSITIVE H NEGATIVE Urine Oxycodone Screen NEGATIVE NEGATIVE Urine Methadone Screen NEGATIVE NEGATIVE Urine Propoxyphene Screen NEGATIVE NEGATIVE Urine Barbiturates Screen NEGATIVE NEGATIVE Ur Tricyclic Antidepressants Screen NEGATIVE NEGATIVE Urine Phencyclidine Screen NEGATIVE NEGATIVE Urine Amphetamines Screen NEGATIVE NEGATIVE Urine Methamphetamines Screen NEGATIVE NEGATIVE Urine Benzodiazepines Screen NEGATIVE NEGATIVE Urine Cocaine Screen NEGATIVE NEGATIVE Urine Cannabinoids Screen NEGATIVE NEGATIVE Glucometer 342 H 70-110 MG/DL My Orders Orders - MARGO MIDDLETON MD Comprehensive Metabolic Panel (05/30/22 23:43) Lipase (05/30/22 23:43) Ed Iv/Invasive Line Start (05/30/22 23:43) Cbc With Automated Diff (05/30/22 23:43) Hs C Reactive Protein (05/30/22 23:43) Lactic Acid Analyzer (05/30/22 23:43) Ketorolac Injection (Toradol Injection) (05/30/22 23:45) Morphine Injection (Morphine Injection (05/30/22 23:43) Ondansetron Injection (Zofran Injectio (05/30/22 23:45) Ns Iv 1000 Ml (Sodium Chloride 0.9%) (05/30/22 23:43) Ct Abdomen/Pelvis W (05/31/22 00:01) Morphine Injection (Morphine Injection (05/31/22 00:11) Drug Screen Stat (Urine) (05/31/22 00:29) Ua Culture If Indicated (05/31/22 00:29) Ns Iv 1000 Ml (Sodium Chloride 0.9%) (05/31/22 00:29) Insulin (Regular) Human (Novolin R (Per (05/31/22 00:30) Iohexol Injection (Omnipaque 350 Mg/Ml 1 (05/31/22 00:45) Sodium Chloride Flush (Catheter Flush Sy (05/31/22 00:45) Ns (Ivpb) (Sodium Chloride 0.9% Ivpb Bag (05/31/22 00:45) Arterial Blood Gas (05/31/22 00:45) Medications Given in ED Current Medications Medications Dose Ordered Sig/[place] Route Start Time Stop Time Status Last Admin Dose Admin Insulin Human Regular 10 unit ONCE ONCE IV 05/31/22 00:30 05/31/22 00:31 DC 05/31/22 00:37 10 UNIT Iohexol 100 ml ONCE ONCE IV 05/31/22 00:45 05/31/22 00:46 DC 05/31/22 00:40 80 ML Ketorolac Tromethamine 15 mg ONCE ONCE IVP 05/30/22 23:45 05/30/22 23:46 DC 05/30/22 23:56 15 MG Ondansetron HCl 4 mg ONCE ONCE IVP 05/30/22 23:45 05/30/22 23:46 DC 05/30/22 23:55 4 MG Sodium Chloride 10 ml NEEDED PRN IV 05/31/22 00:45 05/31/22 00:40 10 ML Sodium Chloride 100 ml ONCE ONCE IV 05/31/22 00:45 05/31/22 00:46 DC 05/31/22 00:40 80 ML Vital Signs/I&O 05/30/22 23:39 Temp 36.4 Pulse 109 Resp 22 B/P (MAP) 123/75 (91) Pulse Ox 98 O2 Delivery Room Air Progress Progress Note : Progress Note 51-year-old male presenting for severe abdominal pain. ABCs were intact and vitals were stable on presentation. He did have abdominal pain significant more in his epigastric region with a reducible hernia as well. Basic labs significant for mildly elevated CRP, glucose just under 700, with an anion gap of 18, pH 7.4 not consistent with DKA. Given 2 L of IV fluids and 10 units of insulin IV. Repeat glucose in the 300s. Given the severe abdominal pain in the uncontrolled hyperglycemia, contacted Dr. Andrade, who will admit the patient under observation status to the [facility] floor for further evaluation and management. Diagnostic Imaging Diagonstic Imaging: CT (abd/pelv) Departure Impression Primary Impression: Uncontrolled diabetes mellitus with hyperglycemia Qualified Codes: E11.65 - Type 2 diabetes mellitus with hyperglycemia Additional Impressions: Abdominal pain Qualified Codes: R10.13 - Epigastric pain Transaminitis Disposition: ADMITTED INPATIENT Condition: Stable Admissions Decision to Admit Reason: Admit from ER (General) Decision to Admit/Date: May 31, 2022 Time/Decision to Admit Time: 01:00 Departure-Patient Inst. Referrals: MARY COLLINS MD (PCP/Family) Primary Care Physician MARGO MIDDLETON MD May 30, 2022 23:49
[2022-05-30 23:56] LABS: BASOPHILS % (AUTO) 1 % (0-10); EOSINOPHILS % (AUTO) 0 % (0-10); HEMATOCRIT 37 % (40-54); HEMOGLOBIN 13.1 g/dL (13.3-17.7); LYMPHOCYTES # (AUTO) 1.7 10^3/uL (1.0-4.0); LYMPHOCYTES % (AUTO) 37 % (12-44); MEAN CORPUSCULAR HEMOGLOBIN 33 pg (25-34); MEAN CORPUSCULAR HGB CONC 36 g/dL (32-36); MEAN CORPUSCULAR VOLUME 93 fL (80-99); MONOCYTES # (AUTO) 0.3 10^3/uL (0.0-1.0); MONOCYTES % (AUTO) 7 % (0-12); NEUTROPHILS # (AUTO) 2.5 10^3/uL (1.8-7.8); NEUTROPHILS % (AUTO) 53 % (42-75); PLATELET COUNT 153 10^3/uL (130-400); WHITE BLOOD COUNT 4.7 10^3/uL (4.3-11.0)
[2022-05-31] VITALS (8 sets, daily range): BP systolic 119–149; BP diastolic 76–90
[2022-05-31] MEDS ORDERED: morphine INJ 10 MG/ML 1ML (SYR OR VIAL) IVP STA (00:11)
[2022-05-31 00:16] LABS: ALBUMIN 3.9 GM/DL (3.2-4.5); BILIRUBIN,TOTAL 0.7 MG/DL (0.1-1.0); CALCIUM 10.1 MG/DL (8.5-10.1); CREATININE SERUM 1.16 MG/DL (0.60-1.30); POTASSIUM 3.9 MMOL/L (3.6-5.0); TOTAL PROTEIN 9.2 GM/DL (6.4-8.2)
[2022-05-31] MEDS ORDERED: NS IV 1000 ML 1,000 ML IV STA (00:29)
[2022-05-31] MEDS ORDERED: inSUlin (REGULAR) HUMAN 1 UNIT/0.01 ML (CHARGE PER UNIT) IV ONE (00:30)
[2022-05-31] MEDS ORDERED: NS 100 ML (IVPB) BAG IV ONE (00:45)
[2022-05-31] MEDS ORDERED: IOHEXOL 350 MG/ML 100 ML (OMNIPAQUE 350) VIAL IV ONE (00:45)
[2022-05-31] MEDS ORDERED: CATHETER FLUSH 10 ML SYR IV PRN (00:45)
[2022-05-31 00:52] LABS: ABG BASE EXCESS 2.1 MMOL/L (-2.5-2.5); ABG OXYGEN SATURATION 35 % (94-100); ABG PCO2 44 MMHG (35-45)
[2022-05-31 00:56] LABS: ABG PO2 25 MMHG (79-93)
[2022-05-31 00:57] LABS: PATIENT TEMP 36.4
[2022-05-31 01:12] LABS: BILIRUBIN,URINE NEGATIVE (NEGATIVE); CLARITY,URINE CLEAR; COLOR,URINE YELLOW; GLUCOSE, URINE (UA) 3+ (NEGATIVE); KETONES,URINE 1+ (NEGATIVE); LEUKOCYTE ESTERASE ,URINE NEGATIVE (NEGATIVE); NITRITE,URINE NEGATIVE (NEGATIVE); PH,URINE 6.5 (5-9); PROTEIN,URINE NEGATIVE (NEGATIVE)
[2022-05-31 01:27] LABS: AMPHETAMINE SCREEN, URINE NEGATIVE (NEGATIVE); BARBITURATE SCREEN URINE NEGATIVE (NEGATIVE); BENZODIAZEPINES SCREEN URINE NEGATIVE (NEGATIVE); CANNABINOID SCREEN, URINE NEGATIVE (NEGATIVE); COCAINE SCREEN URINE NEGATIVE (NEGATIVE); METHADONE STAT NEGATIVE (NEGATIVE); OPIATE SCREEN URINE POSITIVE (NEGATIVE); OXYCODONE STAT NEGATIVE (NEGATIVE); PROPOXYPHENE STAT NEGATIVE (NEGATIVE); TRICYCLIC ANTIDEPRESSANTS SCRE NEGATIVE (NEGATIVE)
[2022-05-31 01:28] LABS: BACTERIA,URINE NEGATIVE /HPF
[2022-05-31] MEDS ORDERED: ONDANSETRON 4 MG/2 ML (SDV) Z0FRAN IV PRN (03:00)
[2022-05-31] MEDS ORDERED: NALOXONE 0.4 MG/ML 1 ML (NARCAN) VIAL IV PRN (03:00)
[2022-05-31] MEDS ORDERED: morphine INJ 4 MG/ML 1 ML (VIAL/SYRINGE) IV PRN (03:00)
[2022-05-31] MEDS ORDERED: ACETAMINOPHEN 500 MG TAB (TYLENOL) PO PRN (03:00)
[2022-05-31] MEDS: LORazepam INJ 2 MG/ML (ATIVAN) VIAL IV PRN ×2 (03:00→10:16)
[2022-05-31] MEDS: LACTATED RINGERS 1,000 ML IV SCH ×4 (03:01→17:40)
[2022-05-31] MEDS: inSUlin ASPART (NovoLOG) 1 UNIT/0.01 ML (CHARGE PER UNIT) SC SCH ×4 (06:46→20:36)
--- NOTE | 2022-05-31 07:15 | Diagnostic Imaging Report ---
PROCEDURE: CT abdomen and pelvis with contrast. TECHNIQUE: Multiple contiguous axial images were obtained through the abdomen and pelvis after administration of intravenous contrast. Auto Exposure Controls were utilized during the CT exam to meet ALARA standards for radiation dose reduction. All CT scans use one or more of the following dose optimizing techniques: automated exposure control, MA and/or KvP adjustment based on patient size and exam type or iterative reconstruction. INDICATION: Upper abdominal pain. Previous history of pancreatic pseudocyst and removal with stent. EXAMINATION: CT abdomen pelvis with contrast 05/31/2022 COMPARISON: 02/13/2021 FINDINGS: The lung bases unremarkable. There is diffuse fatty infiltration throughout the liver. Mild hepatomegaly also noted. There is inflammatory change with fat stranding and minimal fluid surrounding the gallbladder with likely gallbladder wall thickening. Common duct does not appear distended. Within the pancreas there is persistent pancreatic ductal dilatation. This is similar to the previous CT. Again noted are several stents, one is a gastric stent with a 2nd stent towards the pancreatic head, these are similar in positioning to previous examination. There are no new pseudocysts with no evidence for abscess. Varices noted in the upper abdomen. Spleen normal. Scattered shotty lymph nodes throughout the upper abdomen likely reactive. The kidneys stable and unremarkable for acute abnormality. Multiple cystic lesions stable on the left. Urinary bladder markedly distended likely due to timing of imaging. There is no ascites. There is no free air. There is no new or acute osseous abnormality. IMPRESSION: 1. Stable appearing gastric and pancreatic stents with persistent but stable pancreatic ductal dilatation. No new inflammatory change about the pancreas. 2. Findings of inflammatory change about the gallbladder. Acute cholecystitis is not excluded. 3. Hepatomegaly and hepatic steatosis with findings suspicious for cirrhosis given multiple varices in the upper abdomen. Other findings stable from previous imaging. Dictated by: Dictated on workstation # [id number]
[2022-05-31] MEDS ORDERED: FLU QUADRIvalent (6 months+) 60 mcg/0.5 ml 2022-23 (Fluzone) IM ONE (08:00)
[2022-05-31 10:24] LABS: HEMOGLOBIN 11.1 g/dL (13.3-17.7)
[2022-05-31 10:26] LABS: WHITE BLOOD COUNT 4.5 10^3/uL (4.3-11.0)
[2022-05-31 10:38] LABS: POTASSIUM 3.3 MMOL/L (3.6-5.0)
[2022-05-31 10:39] LABS: ALBUMIN 3.1 GM/DL (3.2-4.5); CALCIUM 8.3 MG/DL (8.5-10.1)
[2022-05-31 10:40] LABS: TOTAL PROTEIN 7.3 GM/DL (6.4-8.2)
--- NOTE | 2022-05-31 10:41 | History & Physical-Hospitalist ---
History of Present Illness HPI/Chief Complaint Pt is a 51yoCM with a PMH of IDDMII, alcohol abuse, pancreatic pseudocyst and stenting who presented to the ER due abdominal pain. He states he has had a cough for roughly 1 week and with the coughing he noticed his "hernia popped out." He has had abdominal pain since that happened yesterday. He was found to be very hyperglycemic in the ER with a BS of 664. He was admitted for pain management and glycemic control. This morning he reports persistent abd pain today that did not respond to oral oxycodone this morning. Source: patient Date Seen 05/31/22 Time Seen by a Provider: 09:30 Attending Physician Jeevan Davidson MD PCP Admitting Physician: Netta Andrade MD Attending Physician: Netta Andrade MD Referring Physician Date of Admission May 31, 2022 at 01:26 Home Medications & Allergies Home Medications Reviewed patient Home Medication Reconciliation performed by pharmacy medication reconciliations licensed veterinary technician and/or nursing. Patients Allergies have been reviewed. Allergies Allergies Coded Allergies No Known Drug Allergies (Unverified07/19/15) Past Mmdktub-Olaqzz-Gnjsdj Hx Patient Social History Tobacco Use?: Yes Tobacco type used: Cigarettes Smoking Status: Current Everyday Smoker Use of E-Cig and/or Vaping dev: No Substance use?: No Alcohol Use?: Yes Alcohol type: Beer Alcohol Frequency: Daily Pt feels they are or have been: No Immunizations Up To Date Date of Influenza Vaccine: Mar 29, 2015 First/Initial COVID19 Vaccinat: na Tetanus Booster (TDap): Unknown Hepatitis A: Yes Hepatitis B: Yes Date of Pneumonia Vaccine: Jun 06, 2013 Seasonal Allergies Seasonal Allergies: No Current Status Advance Directives: No Communicates: Verbally Primary Language: Serbian Preferred Spoken Language: Serbian Is interpretation needed?: No Implanted or Applied Medical D: Stents Past Medical History Surgeries: Abdominal Pneumonia Currently Using CPAP: No Currently Using BIPAP: No Hypertension Sexually Transmitted Disease: No HIV/AIDS: No Abdominal Hernia, Gastroesophageal Reflux, Pancreatitis Loss of Vision: Denies Hearing Impairment: Denies Anxiety, Bipolar Recent Skin Changes Blood Disorders: No Adverse Reaction/Blood Tranf: No Past Medical History 1. Chronic Pancreatitis 2. Alcoholism 3. Reported a history of THC use (with positive uds for methamphetamine, amphetamine, benzodiazepines and THC 1-22-16) 4. Depression/ Anxiety 5. Hypertension 6. Tobaccoism Past Surgical History 1.Removal of pancreatic cyst x2 [place] Family Medical History Reviewed Nursing Family Hx Alcoholism 03 FATHER Cancer 03 FATHER (CANCER OF JAW) Family history: Cardiovascular disease 03 FATHER Family history: Diabetes mellitus 03 MOTHER 09 SISTER No Pertinent Family Hx, Diabetes, Hypertension Review of Systems Constitutional: No chills, No fever EENTM: no symptoms reported Respiratory: cough; No phlegm Cardiovascular: no symptoms reported Gastrointestinal: see HPI Genitourinary: no symptoms reported Musculoskeletal: no symptoms reported Skin: no symptoms reported Psychiatric/Neurological: No Symptoms Reported Physical Exam Physical Exam Vital Signs Vital Signs - First Documented 05/30/22 05/31/22 05/31/22 23:39 04:58 08:42 Temp 36.4 Pulse 109 Resp 22 B/P (MAP) 123/75 (91) Pulse Ox 98 O2 Delivery Room Air O2 Flow Rate 0.00 FiO2 21 Capillary Refill : Less Than 3 Seconds Height, Weight, BMI Height: 5'10.00" Weight: 160lbs. 6.0oz. 72.477582sm; 19.72 BMI Method:Stated General Appearance: No Apparent Distress, WD/WN HEENT: PERRL/EOMI, Moist Mucous Membranes; No Scleral Icterus (L), No Scleral Icterus (R) Neck: Normal Inspection, Supple Respiratory: Lungs Clear, No Accessory Muscle Use, No Respiratory Distress Cardiovascular: Regular Rate, Rhythm, No JVD, No Murmur Gastrointestinal: Normal Bowel Sounds, Non Tender, Soft, Other (midline surgical scar with ventral hernia that reduces ) Extremity: Normal Capillary Refill, No Calf Tenderness, No Pedal Edema Neurologic/Psychiatric: Alert, Oriented x3 Results Results/Procedures Labs Laboratory Tests 05/30/22 23:47 05/31/22 10:17 Patient resulted labs reviewed. Imaging: Reviewed Imaging Report Imaging [facility] [place] NAME: SHELBY CURRY [facility] REC#: [id number] PT STATUS: ADM Cheli : 1970 PHYSICIAN: MARGO MIDDLETON MD ADMIT DATE: 05/31/22/4TH Signed Date of Exam:05/31/22 CT ABDOMEN/PELVIS W PROCEDURE: CT abdomen and pelvis with contrast. TECHNIQUE: Multiple contiguous axial images were obtained through the abdomen and pelvis after administration of intravenous contrast. Auto Exposure Controls were utilized during the CT exam to meet ALARA standards for radiation dose reduction. All CT scans use one or more of the following dose optimizing techniques: automated exposure control, MA and/or KvP adjustment based on patient size and exam type or iterative reconstruction. INDICATION: Upper abdominal pain. Previous history of pancreatic pseudocyst and removal with stent. EXAMINATION: CT abdomen pelvis with contrast 05/31/2022 COMPARISON: 02/13/2021 FINDINGS: The lung bases unremarkable. There is diffuse fatty infiltration throughout the liver. Mild hepatomegaly also noted. There is inflammatory change with fat stranding and minimal fluid surrounding the gallbladder with likely gallbladder wall thickening. Common duct does not appear distended. Within the pancreas there is persistent pancreatic ductal dilatation. This is similar to the previous CT. Again noted are several stents, one is a gastric stent with a 2nd stent towards the pancreatic head, these are similar in positioning to previous examination. There are no new pseudocysts with no evidence for abscess. Varices noted in the upper abdomen. Spleen normal. Scattered shotty lymph nodes throughout the upper abdomen likely reactive. The kidneys stable and unremarkable for acute abnormality. Multiple cystic lesions stable on the left. Urinary bladder markedly distended likely due to timing of imaging. There is no ascites. There is no free air. There is no new or acute osseous abnormality. IMPRESSION: 1. Stable appearing gastric and pancreatic stents with persistent but stable pancreatic ductal dilatation. No new inflammatory change about the pancreas. 2. Findings of inflammatory change about the gallbladder. Acute cholecystitis is not excluded. 3. Hepatomegaly and hepatic steatosis with findings suspicious for cirrhosis given multiple varices in the upper abdomen. Other findings stable from previous imaging. Dictated by: Dictated on workstation # [id number] Dict: 05/31/2253 Trans: 05/31/22828 [facility] [id number] Interpreted by: ROGER FRYE MD Electronically signed by: ROGER FRYE MD 05/31/22828 Assessment/Plan Admission Diagnosis Intractable abd pain Admission Status: Observation Assessment and Plan Intractable abd pain pancreatic pseudocyst hernia reduces so likely not the source of pain Did not respond to oxycodone this AM IV morphine available CT cannot rule out cholecystitis Surgery consulted, appreciate recs poorly controlled diabetes Levemir to start tonight SSI A1c Hepatic cirrhosis alcohol abuse transaminitis Repeat CMP this AM CIWA protocol cough 1 week duration COVID and Flu test Diagnosis/Problems Diagnosis/Problems (1) Abdominal pain Status: Acute (2) Uncontrolled diabetes mellitus with hyperglycemia Status: Acute Qualifiers: Diabetes mellitus type: type 2 Qualified Codes: E11.65 - Type 2 diabetes mellitus with hyperglycemia (3) Hyperglycemia Status: Acute (4) Transaminitis Status: Acute (5) Ventral hernia (6) Pancreatic cyst Status: Acute (7) Elevated liver function tests Status: Acute NETTA ANDRADE MD May 31, 2022 10:41
[2022-05-31 10:45] LABS: CREATININE SERUM 0.75 MG/DL (0.60-1.30)
[2022-05-31] MEDS: IBUPROFEN TABLET 200 MG TAB PO PRN (10:47)
[2022-05-31] MEDS ORDERED: KCL 20 MEQ TAB (K-DUR) PO NR (11:15)
--- NOTE | 2022-05-31 13:02 | CONSULTATION REPORT ---
DATE OF SERVICE: 05/31/2022 ATTENDING PRIMARY CARE PHYSICIAN: Dr. Jeevan Davidson. HISTORY OF PRESENT ILLNESS: The patient is a 51-year-old male who was seen with Dr. Dias and presented to the ER for upper abdominal pain. He reports that he does have a history of a pancreatic pseudocyst, status post removal and pancreatic stent placement by open technique. He also reports a history of gastroesophageal reflux disease and is currently on lansoprazole daily, which he reports helps some. He reports that he has not been feeling well and has had a cough and reports that yesterday while lifting, he did feel a pop in the middle of his abdomen along the previous incision. He reports that this did become sharp and painful and that the pain was constant and reports that nothing made it better. He presented to the Emergency Department and underwent a CT scan, which did show stable-appearing gastric and pancreatic stents with persistent, but stable pancreatic ductal dilatation. There were also inflammatory changes about the gallbladder with no stones identified. He was also found to have hepatomegaly and hepatic steatosis with findings suspicious for cirrhosis as well as multiple varices in the upper abdomen. His laboratory work did reveal that he was hyperglycemic with a glucose level of 674 and also had elevated liver enzymes. He was admitted for his hyperglycemia. On today's visit, he does report continued abdominal pain of the mid abdomen, which he reports does not radiate down. He reports that he does have continued episodes of heartburn and reflux. He also reports he drinks 6-pack daily as well as smokes half a pack daily and has done so for approximately 30 years. He also reports that he is not compliant with his medications and does not take his diabetic medications. He denies any nausea or vomiting as well as no diarrhea, but does report occasional episodes of constipation in the past. He also reports that he has not noticed any foods that affect his abdominal pain. PAST MEDICAL HISTORY: Gastroesophageal reflux disease, type 2 diabetes, pancreatic pseudocyst. Alcohol abuse, hypertension, pancreatitis, anxiety and depression, history of THC use as well as methamphetamine, amphetamine and benzodiazepines. PAST SURGICAL HISTORY: Open removal of pancreatic pseudocyst. Incisional hernia repair, placement of pancreatic and gastric stent. ALLERGIES: NO KNOWN DRUG ALLERGIES. MEDICATIONS: Lansoprazole 30 mg daily, oxycodone 5/325 mg every 4 hours p.r.n. SOCIAL HISTORY: Positive for tobacco smoke half a pack per day for 30 years. Positive for alcohol at 6 beers daily. FAMILY HISTORY: Father, alcoholism, cardiovascular disease, cancer of the jaw. Mother, diabetes. Sister, diabetes. REVIEW OF SYSTEMS: This is a well-nourished male in no acute distress. He is not experiencing any shortness of breath or difficulty breathing. No chest pain, palpitations or diaphoresis. No nausea or vomiting. He does report mid abdominal pain along the previous incision with a bulge. No diarrhea. Does report a history of constipation. No bright red blood per rectum. No dark tarry stools. No fever or chills. No recent inadvertent weight loss. All other review of systems negative. PHYSICAL EXAMINATION: VITAL SIGNS: Blood pressure 120/83, pulse ox 94% on room air, respirations 18, pulse 76, temperature 36.5 degrees Celsius. CHEST: Clear. Good breath sounds bilaterally. HEART: Regular, no murmurs. EXTREMITIES: No lower extremity edema. Negative Homans sign. HEENT: No scleral icterus. No cervical lymphadenopathy. ABDOMEN: Soft, nondistended. There is a midline incision from just below the sternum to the superior umbilicus. There is a small ventral abdominal incisional hernia that is reducible; however, tender to palpation. SKIN: Warm, dry and pink. NEUROLOGIC: Awake, alert, oriented x3. ASSESSMENT AND PLAN: A 51-year-old male with medical noncompliance, who was found to be hyperglycemic and does have a history of type 2 diabetes as well as a pancreatic pseudocyst. Upon examination, he was also found to have a ventral abdominal incisional hernia of the mid abdomen, which is small and reducible; however, is tender and does appear to be the source of his pain. At this time, it was explained to him the findings also on the CT about the inflammation of the gallbladder; however, he does not have an elevated white count. At this time, we will proceed with a pressure dressing to the mid abdominal hernia for support as well as pain control. He is instructed that we could proceed with further workup for possible gallbladder etiology including gallbladder ultrasound as well as HIDA scan for possible biliary dyskinesia and if there is any component of gallbladder disease could proceed with a cholecystectomy as well as repair of the incisional hernia on an outpatient basis. The patient verbalized understanding of instructions. CC: Jeevan Davidson MD - requested, unable to deliver. Job ID: [id number] DocumentID: [id number] Dictated Date: 05/31/2022 11:33:13 Cuff Folder Date: 05/31/2022 13:00:00 Dictated By: BRYCE TAY
[2022-06-01] MEDS: LACTATED RINGERS 1,000 ML IV SCH ×2 (00:52→09:39)
[2022-06-01] MEDS: IBUPROFEN TABLET 200 MG TAB PO PRN (00:55)
[2022-06-01 03:50] VITALS: BP 135/83
[2022-06-01] MEDS: inSUlin ASPART (NovoLOG) 1 UNIT/0.01 ML (CHARGE PER UNIT) SC SCH ×2 (05:22→11:43)
[2022-06-01 06:43] LABS: HEMOGLOBIN 11.8 g/dL (13.3-17.7)
[2022-06-01 06:45] LABS: MEAN PLATELET VOLUME 11.1 fL (9.0-12.2); WHITE BLOOD COUNT 3.7 10^3/uL (4.3-11.0)
[2022-06-01 07:00] LABS: POTASSIUM 3.5 MMOL/L (3.6-5.0)
[2022-06-01 07:01] LABS: CALCIUM 8.9 MG/DL (8.5-10.1)
[2022-06-01 07:05] LABS: CREATININE SERUM 0.61 MG/DL (0.60-1.30)
[2022-06-01 07:41] VITALS: BP 136/87
--- NOTE | 2022-06-01 09:57 | Progress Note ---
Subjective Date Seen by a Provider: Jun 01, 2022 Time Seen by a Provider: 09:45 Subjective/Events-last exam Patient seen with Dr. Dias. Patient sleeping upon entering the room. Patient rates his abdominal pain a 2-3 out of 10. Denies any other issues. Focused Exam Lactate Level 05/30/22 23:47: Lactic Acid Level 2.44*H 05/31/22 01:48: Lactic Acid Level 1.59 Objective Exam Vital Signs Date Time Temp Pulse Resp B/P (MAP) Pulse Ox O2 Delivery O2 Flow Rate FiO2 06/01/22 08:00 Room Air 06/01/22 07:41 36.8 71 18 136/87 (103) 95 Room Air 06/01/22 07:00 62 06/01/22 03:50 36.5 69 18 135/83 (100) 97 Room Air 06/01/22 01:03 69 05/31/22 23:30 36.6 76 18 148/90 (109) 94 Room Air 05/31/22 20:39 Room Air 05/31/22 19:06 36.3 82 18 119/79 (92) 95 Room Air 05/31/22 19:00 73 05/31/22 15:25 36.6 80 16 122/82 (95) 94 Room Air 05/31/22 12:44 87 05/31/22 11:40 37.0 81 20 135/88 (104) 95 Room Air I & O 06/01/22 07:00 Intake Total 3755 ml Output Total 1800 ml Balance 1955 ml Capillary Refill : Less Than 3 Seconds General Appearance: No Apparent Distress, WD/WN Neck: Normal Inspection, Supple Respiratory: No Accessory Muscle Use, No Respiratory Distress Cardiovascular: Regular Rate, Rhythm, No Edema Gastrointestinal: normal bowel sounds, soft, tenderness, other (Mid abdomen incisional hernia reducible, small, tender to palpation) Extremity: Normal Inspection, Normal Range of Motion Neurologic/Psychiatric: Alert, Oriented x3 Skin: Normal Color, Warm/Dry Results Lab Laboratory Tests 05/31/22 10:17: White Blood Count 4.5, Red Blood Count 3.36L, Hemoglobin 11.1L, Hematocrit 31L, Mean Corpuscular Volume 92, Mean Corpuscular Hemoglobin 33, Mean Corpuscular Hemoglobin Concent 36, Red Cell Distribution Width 11.9, Platelet Count 105L, Mean Platelet Volume 11.0, Percent Immature Platelet Fraction 6.8, Sodium Level 129L, Potassium Level 3.3L, Chloride Level 92L, Carbon Dioxide Level 22, Anion Gap 15H, Blood Urea Nitrogen 7, Creatinine 0.75, Estimat Glomerular Filtration Rate 109, BUN/Creatinine Ratio 9, Glucose Level 355H, Calcium Level 8.3L, Corrected Calcium 9.0, Total Bilirubin 1.0, Aspartate Amino Transf (AST/SGOT) 329H, Alanine Aminotransferase (ALT/SGPT) 248H, Alkaline Phosphatase 66, Total Protein 7.3, Albumin 3.1L 05/31/22 10:21: Influenza Type A (RT-PCR) Not Detected, Influenza Type B (RT-PCR) Not Detected, SARS-CoV-2 RNA (RT-PCR) Not Detected 05/31/22 11:33: Glucometer 310H 05/31/22 15:27: Glucometer 266H 05/31/22 20:20: Glucometer 265H 06/01/22 05:20: Glucometer 143H 06/01/22 06:06: White Blood Count 3.7L, Red Blood Count 3.54L, Hemoglobin 11.8L, Hematocrit 33L, Mean Corpuscular Volume 93, Mean Corpuscular Hemoglobin 33, Mean Corpuscular Hemoglobin Concent 36, Red Cell Distribution Width 11.9, Platelet Count 102L, Mean Platelet Volume 11.1, Percent Immature Platelet Fraction 8.2H, Sodium Level 132L, Potassium Level 3.5L, Chloride Level 95L, Carbon Dioxide Level 24, Anion Gap 13, Blood Urea Nitrogen 7, Creatinine 0.61, Estimat Glomerular Filtration Rate 116, BUN/Creatinine Ratio 11, Glucose Level 153H, Calcium Level 8.9 Assessment/Plan Assessment/Plan Assess & Plan/Chief Complaint A 51 year old male with hyperglycemia and abdominal pain secondary to incisional hernia. VSS Tolerating diet Pain controlled Continue with medical management for the hyperglycemia Can fix the incisional hernia on an outpatient basis ENRRIQUE PADILLA CRANBERRY GROWER Jun 01, 2022 09:57
[2022-06-01] MEDS ORDERED: INSU100I29 SQ ×2 (11:14→11:19)
[2022-06-01] MEDS ORDERED: INSU100I14 SQ ×2 (11:14→11:19)
--- NOTE | 2022-06-01 11:18 | Discharge Inst-Simple/Standard ---
Discharge Inst-Standard Discharge Medications New, Converted or Re-Newed RX: Transmitted to Pharmacy Patient Instructions/Follow Up Plan of Care/Instructions/FU: Please continue to take your medications as written. Please follow up with your primary care doctor to follow up this hospital stay. Activity as Tolerated: Yes Discharge Diet: ADA Diet Return to The Hospital For: Chest pain, high blood sugars, abdominal pain, shortness of breath, fever, weakness, if you feel you are getting worse. NETTA WALDEN MD Jun 01, 2022 11:18
--- NOTE | 2022-06-01 11:21 | Discharge Summary ---
Diagnosis/Chief Complaint Date of Admission May 31, 2022 at 01:26 Date of Discharge Discharge Date: Jun 01, 2022 Admission Diagnosis Intractable abd pain Primary Care Jeevan Davidson MD Discharge Diagnosis (1) Abdominal pain Status: Acute (2) Uncontrolled diabetes mellitus with hyperglycemia Status: Acute (3) Hyperglycemia Status: Acute (4) Transaminitis Status: Acute (5) Ventral hernia (6) Pancreatic cyst Status: Acute (7) Elevated liver function tests Status: Acute Discharge Summary Discharge Physical Exam Allergies: Coded Allergies: No Known Drug Allergies (Unverified , 07/19/15) Vitals & I&Os Vital Signs Date Time Temp Pulse Resp B/P (MAP) Pulse Ox O2 Delivery O2 Flow Rate FiO2 06/01/22 08:00 Room Air 06/01/22 07:41 36.8 71 18 136/87 (103) 95 05/31/22 08:42 0.00 05/31/22 04:58 21 General Appearance: No Apparent Distress, WD/WN Respiratory: Lungs Clear, No Respiratory Distress Cardiovascular: Regular Rate, Rhythm, No Murmur Neurologic/Psychiatric: Alert, Oriented x3 Hospital Course Patient was admitted to the hospital secondary to intractable abdominal pain and elevated blood sugars. He was not in DKA but did have profoundly elevated blood sugars. He was started on insulin as he has previously been an insulin- dependent diabetic but quit taking it. He did very well with this and fasting blood sugar was 153 upon discharge. He was seen in consultation by surgery due to his ventral hernia and gallbladder findings on CT. They recommended outpatient follow-up. He was discharged home in stable and improved condition to follow-up with [facility] where he is establishing both mental health care and primary care. Labs (last 24 hrs) Laboratory Tests 05/31/22 11:33: Glucometer 310H 05/31/22 15:27: Glucometer 266H 05/31/22 20:20: Glucometer 265H 06/01/22 05:20: Glucometer 143H 06/01/22 06:06: White Blood Count 3.7L, Red Blood Count 3.54L, Hemoglobin 11.8L, Hematocrit 33L, Mean Corpuscular Volume 93, Mean Corpuscular Hemoglobin 33, Mean Corpuscular Hemoglobin Concent 36, Red Cell Distribution Width 11.9, Platelet Count 102L, Mean Platelet Volume 11.1, Percent Immature Platelet Fraction 8.2H, Sodium Level 132L, Potassium Level 3.5L, Chloride Level 95L, Carbon Dioxide Level 24, Anion Gap 13, Blood Urea Nitrogen 7, Creatinine 0.61, Estimat Glomerular Filtration Rate 116, BUN/Creatinine Ratio 11, Glucose Level 153H, Calcium Level 8.9 Patient resulted labs reviewed. Pending Labs Laboratory Tests 06/01/22 05:20: Glucometer 143 06/01/22 06:06: White Blood Count 3.7, Red Blood Count 3.54, Hemoglobin 11.8, Hematocrit 33, Mean Corpuscular Volume 93, Mean Corpuscular Hemoglobin 33, Mean Corpuscular Hemoglobin Concent 36, Red Cell Distribution Width 11.9, Platelet Count 102, Mean Platelet Volume 11.1, Percent Immature Platelet Fraction 8.2, Sodium Level 132, Potassium Level 3.5, Chloride Level 95, Carbon Dioxide Level 24, Anion Gap 13, Blood Urea Nitrogen 7, Creatinine 0.61, Estimat Glomerular Filtration Rate 116, BUN/Creatinine Ratio 11, Glucose Level 153, Calcium Level 8.9 Imaging: Reviewed Imaging Report Discussion & Recommendations Discharge Planning: >30 minutes discharge planning Discharge Home Medications: Active Scripts Active Novolog Flexpen (Insulin Aspart) 100 Unit/Ml (3 Ml) Solution 3 Units SQ AC Hold for BS under 130 Levemir Flextouch (Insulin Detemir) 100 Unit/Ml (3 Ml) Insuln.pen 10 Unit SQ HS Percocet 5-325 mg Tablet (Oxycodone HCl/Acetaminophen) 1 Each Tablet 1 Each PO Q4H PRN Reported Lansoprazole 30 Mg Capsule.dr 30 Mg PO DAILY Instructions to patient/family Please see electronic discharge instructions given to patient. Problem Qualifiers (1) Uncontrolled diabetes mellitus with hyperglycemia: Diabetes mellitus type: type 2 Qualified Codes: E11.65 - Type 2 diabetes mellitus with hyperglycemia (2) Ventral hernia: Qualified Codes: K43.9 - Ventral hernia without obstruction or gangrene NETTA WALDEN MD Jun 01, 2022 11:21
[2022-06-01 11:31] VITALS: BP 146/102
[2022-06-01 12:30] VITALS: BP 146/102
== END 2022-06-01 11:19 | disposition home or self-care (01) ==
LOC: EDUNIT# 23:09 → ER 23:12 → 4TH 05-31 01:26 → UNDOADMOB 05-31 01:26 → 4TH 05-31 02:00 → UNDODISOB 06-01 11:19
PROVIDERS: ADMIT Family Medicine; ATTEND Family Medicine
DX: R10.9 Unspecified abdominal pain (principal); E11.65 Type 2 diabetes mellitus with hyperglycemia; R74.01 Elevation of levels of liver transaminase levels; K43.9 Ventral hernia without obstruction or gangrene; K86.2 Cyst of pancreas; Z79.4 Long term (current) use of insulin; F17.210 Nicotine dependence, cigarettes, uncomplicated; Z28.310 Unvaccinated for COVID-19; K74.60 Unspecified cirrhosis of liver
CPT/HCPCS: 74177; 80048; 80053 ×2; 80306; 81000; 82805; 82947 ×2; 83036; 83605 ×2; 83690; 85025; 85027 ×2; 86141; 87636; 94760; 96372 ×2; 96375; 96376; 99285; G0378; 36415

== ENCOUNTER 2022-06-20 23:43 | Emergency (ER) | payer SELFPAY ==
[~2022-06-20 23:43] MED LIST changes: +INSU100I14 SQ; +INSU100I29 SQ
[2022-06-21 00:57] LABS: BASOPHILS % (AUTO) 1 % (0-10); EOSINOPHILS % (AUTO) 0 % (0-10); HEMATOCRIT 39 % (40-54); LYMPHOCYTES # (AUTO) 1.3 10^3/uL (1.0-4.0); LYMPHOCYTES % (AUTO) 25 % (12-44); MEAN CORPUSCULAR HEMOGLOBIN 33 pg (25-34); MEAN CORPUSCULAR HGB CONC 36 g/dL (32-36); MEAN CORPUSCULAR VOLUME 94 fL (80-99); MEAN PLATELET VOLUME 10.9 fL (9.0-12.2); MONOCYTES # (AUTO) 0.4 10^3/uL (0.0-1.0); MONOCYTES % (AUTO) 8 % (0-12); NEUTROPHILS # (AUTO) 3.3 10^3/uL (1.8-7.8); NEUTROPHILS % (AUTO) 64 % (42-75); PLATELET COUNT 184 10^3/uL (130-400); WHITE BLOOD COUNT 5.1 10^3/uL (4.3-11.0)
[2022-06-21 01:34] LABS: ALANINE AMINOTRANSFERASE 186 U/L (0-55); ALBUMIN 3.6 GM/DL (3.2-4.5); ALKALINE PHOSPHATASE 101 U/L (40-136); BILIRUBIN,TOTAL 1.4 MG/DL (0.1-1.0); BUN/CREATININE RATIO 7; CALCIUM 9.5 MG/DL (8.5-10.1); CARBON DIOXIDE 22 MMOL/L (21-32); CHLORIDE 89 MMOL/L (98-107); CREATININE SERUM 0.91 MG/DL (0.60-1.30); GFR ESTIMATED 102; LIPASE 58 U/L (8-78); POTASSIUM 3.3 MMOL/L (3.6-5.0); SALICYLATE < 5.0 MG/DL (5.0-20.0); SODIUM 128 MMOL/L (135-145)
[2022-06-21 01:38] LABS: ACETAMINOPHEN < 10 UG/ML (10-30)
[2022-06-21 01:49] LABS: GLUCOSE 577 MG/DL (70-105)
[2022-06-21] MEDS ORDERED: LACTATED RINGERS 1,000 ML IV ONE (02:00)
[2022-06-21] MEDS ORDERED: inSUlin (REGULAR) HUMAN 1 UNIT/0.01 ML (CHARGE PER UNIT) IV ONE (02:00)
[2022-06-21 02:20] LABS: BILIRUBIN,URINE NEGATIVE (NEGATIVE); CLARITY,URINE CLEAR; COLOR,URINE YELLOW; GLUCOSE, URINE (UA) 2+ (NEGATIVE); KETONES,URINE NEGATIVE (NEGATIVE); LEUKOCYTE ESTERASE ,URINE NEGATIVE (NEGATIVE); NITRITE,URINE NEGATIVE (NEGATIVE); PROTEIN,URINE NEGATIVE (NEGATIVE)
[2022-06-21 02:30] LABS: BACTERIA,URINE NEGATIVE /HPF
[2022-06-21 02:42] LABS: AMPHETAMINE SCREEN, URINE NEGATIVE (NEGATIVE); BARBITURATE SCREEN URINE NEGATIVE (NEGATIVE); BENZODIAZEPINES SCREEN URINE NEGATIVE (NEGATIVE); CANNABINOID SCREEN, URINE NEGATIVE (NEGATIVE); COCAINE SCREEN URINE NEGATIVE (NEGATIVE); METHADONE STAT NEGATIVE (NEGATIVE); OPIATE SCREEN URINE NEGATIVE (NEGATIVE); OXYCODONE STAT NEGATIVE (NEGATIVE); PROPOXYPHENE STAT NEGATIVE (NEGATIVE); TRICYCLIC ANTIDEPRESSANTS SCRE NEGATIVE (NEGATIVE)
[2022-06-21] MEDS ORDERED: HOLD METFORMIN - RECEIVED CONTRAST 20 ML VIAL IV SCH (02:45)
[2022-06-21] MEDS ORDERED: NS 100 ML (IVPB) BAG IV ONE (02:45)
[2022-06-21] MEDS ORDERED: IOHEXOL 350 MG/ML 100 ML (OMNIPAQUE 350) VIAL IV ONE (02:45)
[2022-06-21] MEDS ORDERED: KETOROLAC 30 MG/ML VIAL IVP ONE (02:45)
--- NOTE | 2022-06-21 03:33 | ED Psychosocial ---
General Chief Complaint: Suicidal Ideation Risk Stated Complaint: INTOXICATED,SUICIDAL Nursing Triage Note: PT ARRIVAL TO ER VIA PRIVATE VEHICLE FROM HOME WITH COMPLAINT OF SI, CHRONIC ABDOMINAL PAIN, R. EAR PAIN. PT STATES THAT HE HAS MEDICAL PROBLEMS, AND SPENDS MONEY ON HIS ALCOHOL SO THEREFORE DOESNT HAVE MONEY FOR MEDICATIONS. PATIENT STATES THAT HE SHOULD OF HUNG SELF OR SLIT OWN THROAT. PT DENIES BEING HI. Source: patient Exam Limitations: no limitations History of Present Illness Date Seen by Provider: Jun 20, 2022 Time Seen by Provider: 23:45 Initial Comments This 51-year-old man presents to the emergency room with primary complaint of suicidal ideation. He reports depression and anxiety and states he was fired from his job due to alcohol consumption. He drinks alcohol daily. He also reports having a right ear infection that is causing him pain as well as worsening chronic abdominal pain after remote history of abdominal hernia repair with mesh. He reportedly has had an overdose in the past for which she was admitted at a behavioral health facility in [place]. He is a difficult historian as he alternates between demanding care and demanding to leave. The process of behavioral health screening was explained to him. It was also explained to him that he is not allowed to leave since he made direct comments about suicidal ideation with plan. He appears to be likely intoxicated or at least under the influence of alcohol. Allergies and Home Medications Allergies Coded Allergies: No Known Drug Allergies (Unverified , 07/19/15) Patient Home Medication List Home Medication List Reviewed: Yes Amoxicillin (Amoxicillin) 500 Mg Capsule, 1,000 MG PO BID Prescribed by: BE PIMENTEL on 06/21/22 0408 Insulin Aspart (Novolog Flexpen) 100 Unit/Ml (3 Ml) Solution, 3 UNITS SQ AC Prescribed by: NETTA WALDEN on 06/01/22 1119 Insulin Detemir (Levemir Flextouch) 100 Unit/Ml (3 Ml) Insuln.pen, 10 UNIT SQ HS Prescribed by: NETTA WALDEN on 06/01/22 1119 Lansoprazole (Lansoprazole) 30 Mg Capsule.dr, 30 MG PO DAILY, (Reported) Entered as Reported by: RAFAL NORMAN on 11/17/16 0928 Oxycodone HCl/Acetaminophen (Percocet 5-325 mg Tablet) 1 Each Tablet, 1 EACH PO Q4H PRN for ABDOMINAL PAIN Prescribed by: RON ZALDIVAR on 11/20/16 1244 Review of Systems Constitutional: see HPI EENTM: see HPI Respiratory: no symptoms reported Cardiovascular: no symptoms reported Gastrointestinal: see HPI Genitourinary: no symptoms reported Musculoskeletal: no symptoms reported Skin: no symptoms reported Psychiatric/Neurological: See HPI Past Yetmehg-Sqpdiy-Vunyaw Hx Patient Social History Tobacco Use?: Yes Tobacco type used: Cigarettes Smoking Status: Current Everyday Smoker Use of E-Cig and/or Vaping dev: No Substance use?: No Alcohol Use?: Yes Alcohol type: Beer, Hard Liquor Alcohol Frequency: Daily Pt feels they are or have been: No Immunizations Up To Date Tetanus Booster (TDap): Unknown Influenza Vaccine Up-to-Date: No; Not Current First/Initial COVID19 Vaccinat: na Second COVID19 Vaccination Juan: na Third COVID19 Vaccination Date: na Seasonal Allergies Seasonal Allergies: No Past Medical History Surgery/Hospitalization HX: hernia repair, pancreatic stent, pancreatitis, pneumonia, anxiety, bipolar, gerd Surgeries: Yes (pancreatic cyst laposcopic once and open, shent put in pancreas) Abdominal (Abdominal hernia repair with mesh) Respiratory: Yes Pneumonia Currently Using CPAP: No Currently Using BIPAP: No Cardiac: Yes Hypertension Neurological: No Reproductive Disorders: No Sexually Transmitted Disease: No HIV/AIDS: No Genitourinary: No Gastrointestinal: Yes Abdominal Hernia, Gastroesophageal Reflux, Pancreatitis Musculoskeletal: No Endocrine: No HEENT: No Loss of Vision: Denies Hearing Impairment: Denies Cancer: No Psychosocial: Yes (Alcohol dependence) Anxiety, Bipolar Integumentary: No Recent Skin Changes Blood Disorders: No Adverse Reaction/Blood Tranf: No Family Medical History Alcoholism 03 FATHER Cancer 03 FATHER (CANCER OF JAW) Family history: Cardiovascular disease 03 FATHER Family history: Diabetes mellitus 03 MOTHER 09 SISTER No Pertinent Family Hx, Diabetes, Hypertension Physical Exam Vital Signs - First Documented 06/21/22 00:20 Temp 36.8 Pulse 98 Resp 14 B/P (MAP) 127/100 (109) Pulse Ox 99 O2 Delivery Room Air Capillary Refill : Less Than 3 Seconds Height, Weight, BMI Height: 5'10.00" Weight: 160lbs. 6.0oz. [id number]; 19.72 BMI Method:Stated General Appearance: WD/WN, moderate distress HEENT: PERRL/EOMI, TM abnormal (R) (Dull, painful to exam, no erythema), TM abnormal (L), other (Mucous membranes moist) Neck: normal inspection Respiratory: lungs clear, normal breath sounds, no respiratory distress Cardiovascular: regular rate, rhythm, no edema, no murmur Gastrointestinal: No distended; tenderness, other (Tense abdomen, post surgical scarring) Extremities: non-tender, normal inspection, no pedal edema Neurologic/Psychiatric: alert, oriented x 3, other (Agitated, belligerent) Behavior/Eye Contact: good eye contact, uncooperative Skin: normal color, warm/dry Progress/Results/Core Measures Results/Orders Lab Results Laboratory Tests Test 06/20/22 00:49 06/20/22 02:13 06/21/22 00:49 Range/Units White Blood Count 5.1 4.3-11.0 10^3/uL Red Blood Count 4.19 L 4.30-5.52 10^6/uL Hemoglobin 14.0 13.3-17.7 g/dL Hematocrit 39 L 40-54 % Mean Corpuscular Volume 94 80-99 fL Mean Corpuscular Hemoglobin 33 25-34 pg Mean Corpuscular Hemoglobin Concent 36 32-36 g/dL Red Cell Distribution Width 12.6 10.0-14.5 % Platelet Count 184 130-400 10^3/uL Mean Platelet Volume 10.9 9.0-12.2 fL Immature Granulocyte % (Auto) 1 % Neutrophils (%) (Auto) 64 42-75 % Lymphocytes (%) (Auto) 25 12-44 % Monocytes (%) (Auto) 8 0-12 % Eosinophils (%) (Auto) 0 0-10 % Basophils (%) (Auto) 1 0-10 % Neutrophils # (Auto) 3.3 1.8-7.8 10^3/uL Lymphocytes # (Auto) 1.3 1.0-4.0 10^3/uL Monocytes # (Auto) 0.4 0.0-1.0 10^3/uL Eosinophils # (Auto) 0.0 0.0-0.3 10^3/uL Basophils # (Auto) 0.0 0.0-0.1 10^3/uL Immature Granulocyte # (Auto) 0.1 0.0-0.1 10^3/uL Sodium Level 128 L 135-145 MMOL/L Potassium Level 3.3 L 3.6-5.0 MMOL/L Chloride Level 89 L 98-107 MMOL/L Carbon Dioxide Level 22 21-32 MMOL/L Anion Gap 17 H 5-14 MMOL/L Blood Urea Nitrogen 6 L 7-18 MG/DL Creatinine 0.91 0.60-1.30 MG/DL Estimat Glomerular Filtration Rate 102 BUN/Creatinine Ratio 7 Glucose Level 577 *H 70-105 MG/DL Calcium Level 9.5 8.5-10.1 MG/DL Corrected Calcium 9.8 8.5-10.1 MG/DL Total Bilirubin 1.4 H 0.1-1.0 MG/DL Aspartate Amino Transf (AST/SGOT) 200 H 5-34 U/L Alanine Aminotransferase (ALT/SGPT) 186 H 0-55 U/L Alkaline Phosphatase 101 40-136 U/L Total Protein 10.0 H 6.4-8.2 GM/DL Albumin 3.6 3.2-4.5 GM/DL Lipase 58 8-78 U/L Salicylates Level < 5.0 L 5.0-20.0 MG/DL Acetaminophen Level < 10 L 10-30 UG/ML Serum Alcohol 304 *H <10 MG/DL Urine Color YELLOW Urine Clarity CLEAR Urine pH 6.0 5-9 Urine Specific [place] 1.010 L 1.016-1.022 Urine Protein NEGATIVE NEGATIVE Urine Glucose (UA) 2+ H NEGATIVE Urine Ketones NEGATIVE NEGATIVE Urine Nitrite NEGATIVE NEGATIVE Urine Bilirubin NEGATIVE NEGATIVE Urine Urobilinogen 4.0 < = 1.0 MG/DL Urine Leukocyte Esterase NEGATIVE NEGATIVE Urine RBC (Auto) NEGATIVE NEGATIVE Urine RBC NONE /HPF Urine WBC NONE /HPF Urine Crystals NONE /LPF Urine Bacteria NEGATIVE /HPF Urine Casts NONE /LPF Urine Mucus NEGATIVE /LPF Urine Culture Indicated NO Urine Opiates Screen NEGATIVE NEGATIVE Urine Oxycodone Screen NEGATIVE NEGATIVE Urine Methadone Screen NEGATIVE NEGATIVE Urine Propoxyphene Screen NEGATIVE NEGATIVE Urine Barbiturates Screen NEGATIVE NEGATIVE Ur Tricyclic Antidepressants Screen NEGATIVE NEGATIVE Urine Phencyclidine Screen NEGATIVE NEGATIVE Urine Amphetamines Screen NEGATIVE NEGATIVE Urine Methamphetamines Screen NEGATIVE NEGATIVE Urine Benzodiazepines Screen NEGATIVE NEGATIVE Urine Cocaine Screen NEGATIVE NEGATIVE Urine Cannabinoids Screen NEGATIVE NEGATIVE C-Reactive Protein High Sensitivity 1.68 H 0.00-0.50 MG/DL My Orders Orders - BE TOM MD Ua Culture If Indicated (06/20/22 23:47) Cbc With Automated Diff (06/20/22 23:47) Comprehensive Metabolic Panel (06/20/22 23:47) Alcohol (06/20/22 23:47) Drug Screen Stat (Urine) (06/20/22 23:47) Acetaminophen (06/20/22 23:47) Salicylate (06/20/22 23:47) Ed Iv/Invasive Line Start (06/20/22 23:47) Monitor-Rhythm Ecg Trace Only (06/20/22 23:47) Bh Status Checks/Observation O Q15M (06/20/22 23:47) Ed Iv/Invasive Line Start (06/20/22 23:47) Lipase (06/21/22 00:31) Ekg Tracing (06/21/22 00:45) Lactated Ringers (Lr 1000 Ml Iv Solution (06/21/22 02:00) Insulin (Regular) Human (Novolin R (Per (06/21/22 02:00) Ct Abdomen/Pelvis W (06/21/22 01:53) Ct Head Wo (06/21/22 01:53) Ketorolac Injection (Toradol Injection) (06/21/22 02:45) Iohexol Injection (Omnipaque 350 Mg/Ml 1 (06/21/22 02:45) Received Contrast (Hold Metformin- Contr (06/21/22 02:45) Ns (Ivpb) (Sodium Chloride 0.9% Ivpb Bag (06/21/22 02:45) Hs C Reactive Protein (06/21/22 03:31) Medications Given in ED Current Medications Medications Dose Ordered Sig/Winsome Route Start Time Stop Time Status Last Admin Dose Admin Insulin Human Regular 5 unit ONCE ONCE IV 06/21/22 02:00 06/21/22 02:01 DC 06/21/22 02:36 5 UNIT Iohexol 100 ml ONCE ONCE IV 06/21/22 02:45 06/21/22 02:48 DC 06/21/22 02:45 76 ML Ketorolac Tromethamine 30 mg ONCE ONCE IVP 06/21/22 02:45 06/21/22 02:48 DC 06/21/22 02:43 30 MG Lactated Ringer's 1,000 ml @ 0 mls/hr Q0M ONCE IV 06/21/22 02:00 06/21/22 02:01 DC 06/21/22 02:36 999 MLS/HR Sodium Chloride 100 ml ONCE ONCE IV 06/21/22 02:45 06/21/22 02:48 DC 06/21/22 02:45 80 ML Vital Signs/I&O 06/21/22 06/21/22 00:20 04:14 Temp 36.8 Pulse 98 83 Resp 14 20 B/P (MAP) 127/100 (109) 143/99 Pulse Ox 99 99 O2 Delivery Room Air Room Air Blood Pressure Mean: 109 Progress Progress Note : Progress Note Patient was treated with IV fluids and insulin for the hyperglycemia. Toradol was ordered for the pain. Patient was extremely dissatisfied with happening to wait for a medical clearance to receive behavioral health services. He wanted to leave. He was instructed that he could not leave since he had made direct suicidal statements with plan to hang himself. He also later stated that if he left the hospital he would shoot himself. He became belligerent and demanded that his IV be removed. Nursing staff was compliant with removing IV but would not discharge him. Law enforcement was summoned to the hospital. In their presence he was so belligerent that they arrested him for disorderly conduct. Antibiotics were prescribed for the otitis media. CT of the abdomen and pelvis suggested gallbladder wall thickening but this was not correlated with fever, leukocytosis, or elevated CRP. Likewise there was concerned about otomastoiditis on the right associated with his otitis media. Again, this did not correlate with a fever, leukocytosis, or elevated CRP. Patient was discharged with law enforcement to await behavioral health screening in [place]. I did make it clear to law enforcement that he was suicidal and would need a behavioral health screening. Due to patient's refusal of certain aspects of care and refusal to comply with instructions as well as concern for escalating threat to staff, completion of his behavioral health screening in the presence of law enforcement was deemed necessary. Diagnostic Imaging Diagonstic Imaging: CT Plain Films/CT/US/NM/MRI: head Comments CT head revealed no traumatic injury. There was mention of possible right otomastoiditis without overt abscess. No intracranial abnormalities were otherwise identified. Diagonstic Imaging: CT Plain Films/CT/US/NM/MRI: abdomen, pelvis Comments CT abdomen and pelvis was obtained. There was mention of perhaps gallbladder wall thickening or pericholecystic fluid based on [facility] read.. This did not correlate with labs or temperature. This did not appear to be a surgically emergent CT finding. Departure Impression Primary Impression: Suicidal ideation Additional Impressions: Alcohol intoxication Qualified Codes: F10.929 - Alcohol use, unspecified with intoxication, unspecified Right otitis media with effusion Alcohol dependence Qualified Codes: F10.29 - Alcohol dependence with unspecified alcohol- induced disorder Abnormal CT of the abdomen Abdominal pain Qualified Codes: R10.84 - Generalized abdominal pain Disposition: 21 DIS/X[address]/LAW ENFORCE Condition: Stable Departure-Patient Inst. Referrals: MARY COLLINS MD (PCP/Family) Primary Care Physician Patient Instructions: Ear Infection ED, OUTPT MENTAL HEALTH SERVICES, Severe Abdominal Pain, Suicide Prevention Add. Discharge Instructions: Start antibiotics for your ear infection. Behavioral health screening should be performed after sober due to suicidal ideation. Return to care if there is worsening abdominal pain or new symptoms develop such as fever, vomiting, etc. All discharge instructions reviewed with patient and/or family. Voiced understanding. Scripts Amoxicillin (Amoxicillin) 500 Mg Capsule 1000 MG PO BID, #40 CAP 0 Refills Prov: BE TOM MD 06/21/22 Copy Copies To 1: MARY COLLINS MD, JOSHUA T MD Jun 21, 2022 03:33
[2022-06-21] MEDS ORDERED: AMOX500C2 PO (04:08)
[2022-06-21 04:14] VITALS: BP 143/99
--- NOTE | 2022-06-21 06:26 | Diagnostic Imaging Report ---
Clinical indications: Patient with headache and right ear pain. Exam: Axial CT scan of the brain without IV contrast with coronal and sagittal reformatted images. Auto Exposure Controls were utilized during the CT exam to meet ALARA standards for radiation dose reduction. Comparison: None Findings: There is no evidence of acute cerebral infarct, intracranial hemorrhage, or gross mass effect. The brain parenchymal volume appears appropriate for patient's age. There is normal valladares-white matter distinction. There is no significant midline shift or herniation. There is no evidence of hydrocephalus. The basal cisterns are unremarkable. The skull, extracranial soft tissue, and orbits are unremarkable. There is mild mucosal thickening involving both maxillary sinuses. There is complete consolidation involving the right middle ear and right mastoid air cells. Impression: 1: There is no CT evidence of acute intracranial process. 2: There is complete consolidation of the right middle ear and right mastoid air cells regions which may be related to otomastoiditis. 3: There is mild bilateral maxillary sinus disease. I agree with [facility] report. Dictated by: Dictated on workstation # [id number]
--- NOTE | 2022-06-21 06:55 | Diagnostic Imaging Report ---
PROCEDURE: CT abdomen and pelvis with contrast. TECHNIQUE: Multiple contiguous axial images were obtained through the abdomen and pelvis after administration of intravenous contrast. Auto Exposure Controls were utilized during the CT exam to meet ALARA standards for radiation dose reduction. All CT scans use one or more of the following dose optimizing techniques: automated exposure control, MA and/or KvP adjustment based on patient size and exam type or iterative reconstruction. INDICATION: 51-year-old male, abdominal pain. CORRELATION STUDY: 05/31/2022 FINDINGS: LOWER THORAX: Clear. LIVER: Enlarged 21 cm in length. Diffuse hepatic steatosis. GALLBLADDER: Either thickening of the gallbladder wall or edematous changes around the gallbladder. This appears generally stable from prior. No definitive gallstones. SPLEEN: Mildly enlarged. PANCREAS: Pancreatic stent remains in place. Dilatation of the pancreatic duct up to 0.6 cm. ADRENAL GLANDS: Unremarkable. KIDNEYS: Left renal cyst. Otherwise, normal enhancement. No hydronephrosis or obstruction. ABDOMINAL AORTA: Mild atherosclerotic calcification and plaque. Nonaneurysmal. Upper abdominal varicosities. GASTROINTESTINAL TRACT: Gastric stent is present. Stomach is relatively decompressed. No small bowel obstruction. Colon is distended with a moderate amount of stool. URINARY BLADDER: Unremarkable. REPRODUCTIVE: Unremarkable. OSSEOUS STRUCTURES: No acute abnormality. OTHER: None. IMPRESSION: 1. Abnormal appearance of the gallbladder wall with either thickening or edematous changes. May represent acute cholecystitis as demonstrated on prior. Could also be attributed to apparent underlying liver disease. 2. Hepatomegaly with rather prominent hepatic steatosis. 3. Splenomegaly. Upper abdominal varicosities. No significant ascites. 4. Gastric stent present. Pancreatic stent present with some dilatation of the pancreatic duct. 5. A large number of the findings overall generally stable from previous examination 3 weeks earlier. Initial report was provided by [facility]. Dictated by: Dictated on workstation # [id number]
== END 2022-06-21 04:14 ==
LOC: EDUNIT# 23:43 → ER 23:45
DX: R45.851 Suicidal ideations (principal); F10.229 Alcohol dependence with intoxication, unspecified; H65.91 Unspecified nonsuppurative otitis media, right ear; R93.5 Abnormal findings on diagnostic imaging of other abdominal regions, including retroperitoneum; R10.9 Unspecified abdominal pain; R73.9 Hyperglycemia, unspecified; F17.210 Nicotine dependence, cigarettes, uncomplicated; Z98.890 Other specified postprocedural states; Z28.310 Unvaccinated for COVID-19; Z79.4 Long term (current) use of insulin
CPT/HCPCS: 70450; 74177; 80053; 80306; 81000; 83690; 85025; 99284; G0480 ×3; 36415; 80320; 80329; 86141; 93005

== ENCOUNTER 2022-09-26 16:04 | Emergency (ER) | payer OTHER ==
[~2022-09-26] VITALS: Ht 177 cm; Wt 70.3 kg
[~2022-09-26 16:04] MED LIST changes: +AMOX500C2 PO
[2022-09-26 16:38] LABS: BASOPHILS # (AUTO) 0.1 10^3/uL (0.0-0.1); BASOPHILS % (AUTO) 1 % (0-10); EOSINOPHILS % (AUTO) 0 % (0-10); HEMATOCRIT 37 % (40-54); HEMOGLOBIN 13.2 g/dL (13.3-17.7); LYMPHOCYTES # (AUTO) 2.7 10^3/uL (1.0-4.0); LYMPHOCYTES % (AUTO) 36 % (12-44); MEAN CORPUSCULAR HEMOGLOBIN 32 pg (25-34); MEAN CORPUSCULAR HGB CONC 35 g/dL (32-36); MEAN CORPUSCULAR VOLUME 90 fL (80-99); MEAN PLATELET VOLUME 10.8 fL (9.0-12.2); MONOCYTES # (AUTO) 0.4 10^3/uL (0.0-1.0); MONOCYTES % (AUTO) 6 % (0-12); NEUTROPHILS # (AUTO) 4.3 10^3/uL (1.8-7.8); NEUTROPHILS % (AUTO) 57 % (42-75); PLATELET COUNT 171 10^3/uL (130-400); WHITE BLOOD COUNT 7.4 10^3/uL (4.3-11.0)
--- NOTE | 2022-09-26 16:38 | ED Psychosocial ---
General Chief Complaint: Suicidal Ideation Risk Stated Complaint: PSYCH ISSUES Source: patient Exam Limitations: no limitations (MARGO ZELAYA) History of Present Illness Date Seen by Provider: Sep 26, 2022 Time Seen by Provider: 16:35 Initial Comments Patient is a 52-year-old male with a history of bipolar, PTSD, type 2 diabetes, pancreatitis, SI who presentsto ED for suicidal thoughts. Patient states today he lost his house, lost his and his car. Patient states he started having suicidal thoughts this morning with a plan of drinking a bottle of a liquor and taking sleeping pills. History of SI with hospitalization in the past according to patient. Patient states he was recently at a [facility] in [facility]. Patient states he has been seen at [facility] in the past. Reports daily alcohol use 6 to 12 beers. Drinks 6 pack of beer today. Denies of any drug use. He reports smoking daily. Patient does report some right leg pain and upper abdominal pain but states this is chronic secondary to neuropathy and a hernia from complications from surgery for pancreatitis. Patient is requesting behavioral health evaluation. Patient is cooperative. Denies of any hallucinations. Denies chest pain, cough, shortness of breath, headache, dizziness, visual changes or urinary symptoms, fever nausea, vomiting, diarrhea. patient denies of any homicidal thoughts, bloody stools, vomiting blood. Denies history of withdrawal seizures (MARGO ZELAYA) Allergies and Home Medications Allergies Coded Allergies: No Known Drug Allergies (Unverified , 07/19/15) Patient Home Medication List Home Medication List Reviewed: Yes (MARGO ZELAYA) Amoxicillin (Amoxicillin) 500 Mg Capsule, 1,000 MG PO BID Prescribed by: BE PIMENTEL on 06/21/22 0408 Insulin Aspart (Novolog Flexpen) 100 Unit/Ml (3 Ml) Solution, 3 UNITS SQ AC Prescribed by: NETTA WALDEN on 06/01/22 1119 Insulin Detemir (Levemir Flextouch) 100 Unit/Ml (3 Ml) Insuln.pen, 10 UNIT SQ HS Prescribed by: NETTA WALDEN on 06/01/22 1119 Lansoprazole (Lansoprazole) 30 Mg Capsule.dr, 30 MG PO DAILY, (Reported) Entered as Reported by: RAFAL NORMAN on 11/17/16 0928 Oxycodone HCl/Acetaminophen (Percocet 5-325 mg Tablet) 1 Each Tablet, 1 EACH PO Q4H PRN for ABDOMINAL PAIN Prescribed by: RON ZALDIVAR on 11/20/16 1244 Review of Systems Constitutional: No chills, No diaphoresis, No fever, No malaise, No weakness EENTM: No ear pain, No blurred vision, No double vision Respiratory: No dyspnea on exertion Cardiovascular: No chest pain Gastrointestinal: abdominal pain; No diarrhea, No nausea, No vomiting Genitourinary: No decreased output, No discharge, No dysuria, No frequency Musculoskeletal: No back pain Skin: No change in color, No change in hair/nails Psychiatric/Neurological: Depressed, Other (SI without any homicidal thoughts) (MARGO ZELAYA) All Other Systems Reviewed Negative Unless Noted: Yes (MARGO ZELAYA) Past Sjhsahw-Ghfsrp-Rodppj Hx Immunizations Up To Date Tetanus Booster (TDap): Unknown First/Initial COVID19 Vaccinat: na Second COVID19 Vaccination Juan: na Third COVID19 Vaccination Date: na (MARGO ZELAYA) Seasonal Allergies Seasonal Allergies: No (MARGO ZELAYA) Past Medical History Surgery/Hospitalization HX: hernia repair, pancreatic stent, pancreatitis, pneumonia, anxiety, bipolar, gerd Surgeries: Yes (pancreatic cyst laposcopic once and open, shent put in pancreas) Abdominal Respiratory: Yes Pneumonia Currently Using CPAP: No Currently Using BIPAP: No Cardiac: Yes Hypertension Neurological: No Reproductive Disorders: No Sexually Transmitted Disease: No HIV/AIDS: No Genitourinary: No Gastrointestinal: Yes Abdominal Hernia, Gastroesophageal Reflux, Pancreatitis Musculoskeletal: No Endocrine: No HEENT: No Loss of Vision: Denies Hearing Impairment: Denies Cancer: No Psychosocial: Yes (Alcohol dependence) Anxiety, Bipolar Integumentary: No Recent Skin Changes Blood Disorders: No Adverse Reaction/Blood Tranf: No (MARGO ZELAYA) Family Medical History Alcoholism 03 FATHER Cancer 03 FATHER (CANCER OF JAW) Family history: Cardiovascular disease 03 FATHER Family history: Diabetes mellitus 03 MOTHER 09 SISTER No Pertinent Family Hx, Diabetes, Hypertension (MARGO ZELAYA) Physical Exam Vital Signs - First Documented 09/26/22 16:20 Temp 37.0 Pulse 134 Resp 20 B/P (MAP) 112/74 (87) Pulse Ox 96 O2 Delivery Room Air (ANTHONY WRIGHT MD) Capillary Refill : (MARGO ZELAYA) Height, Weight, BMI Height: 5'10.00" Weight: 160lbs. 6.0oz. 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 No homicidal thoughts) Skin: normal color, warm/dry (MARGO ZELAYA) Progress/Results/Core Measures Results/Orders Lab Results Laboratory Tests Test 09/26/22 16:33 09/26/22 16:36 09/26/22 18:20 09/26/22 19:47 Range/Units White Blood Count 7.4 4.3-11.0 10^3/uL Red Blood Count 4.17 L 4.30-5.52 10^6/uL Hemoglobin 13.2 L 13.3-17.7 g/dL Hematocrit 37 L 40-54 % Mean Corpuscular Volume 90 80-99 fL Mean Corpuscular Hemoglobin 32 25-34 pg Mean Corpuscular Hemoglobin Concent 35 32-36 g/dL Red Cell Distribution Width 12.7 10.0-14.5 % Platelet Count 171 130-400 10^3/uL Mean Platelet Volume 10.8 9.0-12.2 fL Immature Granulocyte % (Auto) 0 % Neutrophils (%) (Auto) 57 42-75 % Lymphocytes (%) (Auto) 36 12-44 % Monocytes (%) (Auto) 6 0-12 % Eosinophils (%) (Auto) 0 0-10 % Basophils (%) (Auto) 1 0-10 % Neutrophils # (Auto) 4.3 1.8-7.8 10^3/uL Lymphocytes # (Auto) 2.7 1.0-4.0 10^3/uL Monocytes # (Auto) 0.4 0.0-1.0 10^3/uL Eosinophils # (Auto) 0.0 0.0-0.3 10^3/uL Basophils # (Auto) 0.1 0.0-0.1 10^3/uL Immature Granulocyte # (Auto) 0.0 0.0-0.1 10^3/uL Sodium Level 140 135-145 MMOL/L Potassium Level 3.3 L 3.6-5.0 MMOL/L Chloride Level 101 98-107 MMOL/L Carbon Dioxide Level 23 21-32 MMOL/L Anion Gap 16 H 5-14 MMOL/L Blood Urea Nitrogen 8 7-18 MG/DL Creatinine 0.76 0.60-1.30 MG/DL Estimat Glomerular Filtration Rate 108 BUN/Creatinine Ratio 11 Glucose Level 274 H 70-105 MG/DL Calcium Level 9.7 8.5-10.1 MG/DL Corrected Calcium 9.6 8.5-10.1 MG/DL Total Bilirubin 0.6 0.1-1.0 MG/DL Aspartate Amino Transf (AST/SGOT) 290 H 5-34 U/L Alanine Aminotransferase (ALT/SGPT) 232 H 0-55 U/L Alkaline Phosphatase 91 40-136 U/L Total Protein 8.8 H 6.4-8.2 GM/DL Albumin 4.1 3.2-4.5 GM/DL Lipase 74 8-78 U/L Salicylates Level < 5.0 L 5.0-20.0 MG/DL Acetaminophen Level < 10 L 10-30 UG/ML Serum Alcohol 204 H <10 MG/DL Influenza Type A (RT-PCR) Not Detected Not Detecte Influenza Type B (RT-PCR) Not Detected Not Detecte SARS-CoV-2 RNA (RT-PCR) Not Detected Not Detecte Urine Color YELLOW Urine Clarity CLEAR Urine pH 6.0 5-9 Urine Specific [place] 1.015 L 1.016-1.022 Urine Protein TRACE H NEGATIVE Urine Glucose (UA) 3+ H NEGATIVE Urine Ketones NEGATIVE NEGATIVE Urine Nitrite NEGATIVE NEGATIVE Urine Bilirubin NEGATIVE NEGATIVE Urine Urobilinogen 2.0 < = 1.0 MG/DL Urine Leukocyte Esterase NEGATIVE NEGATIVE Urine RBC (Auto) NEGATIVE NEGATIVE Urine RBC NONE /HPF Urine WBC RARE /HPF Urine Crystals NONE /LPF Urine Bacteria NEGATIVE /HPF Urine Casts NONE /LPF Urine Mucus SMALL H /LPF Urine Culture Indicated NO Urine Opiates Screen NEGATIVE NEGATIVE Urine Oxycodone Screen NEGATIVE NEGATIVE Urine Methadone Screen NEGATIVE NEGATIVE Urine Propoxyphene Screen NEGATIVE NEGATIVE Urine Barbiturates Screen NEGATIVE NEGATIVE Ur Tricyclic Antidepressants Screen NEGATIVE NEGATIVE Urine Phencyclidine Screen NEGATIVE NEGATIVE Urine Amphetamines Screen NEGATIVE NEGATIVE Urine Methamphetamines Screen NEGATIVE NEGATIVE Urine Benzodiazepines Screen NEGATIVE NEGATIVE Urine Cocaine Screen NEGATIVE NEGATIVE Urine Cannabinoids Screen POSITIVE H NEGATIVE Glucometer 315 H 70-110 MG/DL Test 09/26/22 22:14 09/26/22 22:26 Range/Units Glucometer 267 H 70-110 MG/DL Serum Alcohol < 10 <10 MG/DL (ANTHONY WRIGHT MD) Medications Given in ED Current Medications Medications Dose Ordered Sig/Winsome Route Start Time Stop Time Status Last Admin Dose Admin Insulin Human Regular 10 unit ONCE ONCE SC 09/26/22 20:00 09/26/22 20:01 DC 09/26/22 19:58 10 UNIT Morphine Sulfate 4 mg ONCE ONCE IVP 09/26/22 20:00 09/26/22 20:01 DC 09/26/22 19:58 4 MG Pantoprazole 40 mg ONCE ONCE IV 09/26/22 23:00 09/26/22 23:01 DC 09/26/22 23:21 40 MG Potassium Chloride 20 meq ONCE ONCE PO 09/26/22 23:15 09/26/22 23:16 DC 09/26/22 23:21 20 MEQ Thiamine HCl 100 mg ONCE ONCE PO 09/26/22 23:15 09/26/22 23:16 DC 09/26/22 23:21 100 MG (ANTHONY WRIGHT MD) Vital Signs/I&O 09/26/22 09/26/22 09/27/22 17:59 22:01 03:00 Temp 36.7 Pulse 112 105 85 Resp 18 16 B/P (MAP) 126/90 (102) 153/99 (117) 128/79 (95) Pulse Ox 96 95 97 O2 Delivery Room Air Room Air (ANTHONY WRIGHT MD) Progress Progress Note #1: Time: 23:45 Progress Note patient care assumed at shift change (2300). Alcohol now undetectable. patient resting comfortably. Will reach out to mental health for screening due to SI. Progress Note #2: Time: 05:06 Progress Note Patient has been screened by [facility] and meets criteria for IP - will be voluntary. is attempting to find bed placement. (ANTHONY WRIGHT MD) Progress Note : Progress Note I assumed care of this patient at 0600 shift change. Placement was pending at that time. Patient did not meet criteria for placement at a MI facility due to short duration of service. The alternative location of [facility] was selected and patient was excepted. He was ultimately transferred by Jazmin Anaya voluntarily. (BE TOM MD) Comment Sinus tachycardia, moderate voltage criteria for LVH, nonspecific T wave abnormality, 116 bpm, QRS duration 86 MS, QTc 410 MS (MARGO ZELAYA) Initial ECG Impression Date: Sep 26, 2022 Initial ECG Impression Time: 23:47 Initial ECG Rate: 116 Initial ECG Rhythm: S.Tach Initial ECG Intervals: Normal Initial ECG Impression: Nonspecific Changes (ANTHONY WRIGHT MD) Departure Communication (PCP) Differential diagnosis of SI, depression. History of diabetes currently on insulin. History of pancreatitis with pancreatic stent. Chronic upper abd ominal pain. Suicidal thoughts with a plan this morning. CBC, CMP, lipase, drug screen, urinalysis, acetaminophen level, salicylate level, EKG, COVID orders were obtained. CBC showed normal white blood count. Hemoglobin 13.2. Potassium at 3.3. Blood sugar 274. Chronically elevated liver enzymes ALT 232, AST 290. Patient was given 2 L of fluid. 10 units of regular insulin. Patient was given IV Protonix 40 mg. Due to patient's elevated alcohol level at 204 continue IV hydration until below 0.08 for behavioral health evaluation. No current suicidal or homicidal thoughts. No active hallucinations. No withdrawal symptoms. Positive THC drug screen. (MARGO ZELAYA) Impression Primary Impression: Suicidal ideation Disposition: 65 XFER TO PSYCH HOSP/UNIT Condition: Stable Transfer Transfer Reason: Exceeds level of care Transfer Time: 10:53 Transfer Facility: [facility] Method of Transfer: (BE TOM MD) Departure-Patient Inst. Referrals: MARY COLLINS MD (PCP/Family) Primary Care Physician Patient Instructions: OUTPT MENTAL HEALTH SERVICES MARGO ZELAYA Sep 26, 2022 16:38 ANTHONY WRIGHT MD Sep 26, 2022 23:47 BE TOM MD Sep 27, 2022 11:27
[2022-09-26] MEDS ORDERED: NS IV 1000 ML 1,000 ML IV SCH (16:45)
[2022-09-26 16:50] LABS: ALBUMIN 4.1 GM/DL (3.2-4.5); CHLORIDE 101 MMOL/L (98-107); POTASSIUM 3.3 MMOL/L (3.6-5.0); SODIUM 140 MMOL/L (135-145)
[2022-09-26 16:51] LABS: CALCIUM 9.7 MG/DL (8.5-10.1)
[2022-09-26 16:53] LABS: GLUCOSE 274 MG/DL (70-105); TOTAL PROTEIN 8.8 GM/DL (6.4-8.2)
[2022-09-26 16:54] LABS: BILIRUBIN,TOTAL 0.6 MG/DL (0.1-1.0); CARBON DIOXIDE 23 MMOL/L (21-32)
[2022-09-26 16:56] LABS: ALKALINE PHOSPHATASE 91 U/L (40-136); CREATININE SERUM 0.76 MG/DL (0.60-1.30); GFR ESTIMATED 108
[2022-09-26 16:58] LABS: BUN/CREATININE RATIO 11
[2022-09-26 16:59] LABS: SALICYLATE < 5.0 MG/DL (5.0-20.0)
[2022-09-26 17:00] LABS: ACETAMINOPHEN < 10 UG/ML (10-30)
[2022-09-26 17:28] LABS: ALANINE AMINOTRANSFERASE 232 U/L (0-55); LIPASE 74 U/L (8-78)
[2022-09-26] MEDS ORDERED: NS IV 1000 ML 1,000 ML IV STA (17:38)
[2022-09-26 18:29] LABS: BILIRUBIN,URINE NEGATIVE (NEGATIVE); CLARITY,URINE CLEAR; COLOR,URINE YELLOW; GLUCOSE, URINE (UA) 3+ (NEGATIVE); KETONES,URINE NEGATIVE (NEGATIVE); LEUKOCYTE ESTERASE ,URINE NEGATIVE (NEGATIVE); NITRITE,URINE NEGATIVE (NEGATIVE); PROTEIN,URINE TRACE (NEGATIVE)
[2022-09-26 18:38] LABS: BACTERIA,URINE NEGATIVE /HPF; WBC,URINE RARE /HPF
[2022-09-26 18:41] LABS: AMPHETAMINE SCREEN, URINE NEGATIVE (NEGATIVE); BARBITURATE SCREEN URINE NEGATIVE (NEGATIVE); BENZODIAZEPINES SCREEN URINE NEGATIVE (NEGATIVE); CANNABINOID SCREEN, URINE POSITIVE (NEGATIVE); COCAINE SCREEN URINE NEGATIVE (NEGATIVE); METHADONE STAT NEGATIVE (NEGATIVE); OPIATE SCREEN URINE NEGATIVE (NEGATIVE); OXYCODONE STAT NEGATIVE (NEGATIVE); PROPOXYPHENE STAT NEGATIVE (NEGATIVE); TRICYCLIC ANTIDEPRESSANTS SCRE NEGATIVE (NEGATIVE)
[2022-09-26] MEDS ORDERED: morphine INJ 10 MG/ML 1ML (SYR OR VIAL) IVP ONE (20:00)
[2022-09-26] MEDS ORDERED: inSUlin (REGULAR) HUMAN 1 UNIT/0.01 ML (CHARGE PER UNIT) SC ONE (20:00)
[2022-09-26] MEDS ORDERED: PANTOPRAZOLE 40 MG (PROTONIX) VIAL IV ONE (23:00)
[2022-09-26] MEDS ORDERED: THIAMINE 100 MG (VITAMIN B-1) TAB PO ONE (23:15)
[2022-09-26] MEDS ORDERED: KCL 20 MEQ TAB (K-DUR) PO ONE (23:15)
[2022-09-27 10:53] VITALS: BP 136/78
== END 2022-09-27 10:53 ==
LOC: EDUNIT# 16:04 → ER 16:14
DX: R45.851 Suicidal ideations (principal); E11.40 Type 2 diabetes mellitus with diabetic neuropathy, unspecified; R74.01 Elevation of levels of liver transaminase levels; F17.200 Nicotine dependence, unspecified, uncomplicated; Z20.822 Contact with and (suspected) exposure to COVID-19; Z79.4 Long term (current) use of insulin; Z96.89 Presence of other specified functional implants; Z28.310 Unvaccinated for COVID-19
CPT/HCPCS: 36415; 80053; 80306; 80320; 80329; 81000; 82947; 83690; 85025; 87636; 93005